=== PATIENT | female | born 1960 | race Caucasian/White ===

== ENCOUNTER 2020-12-05 10:25 | Emergency (ER) | payer BC, MEDICARE ==
[~2020-12-05] VITALS: Ht 165.1 cm; Wt 113.4 kg
[~2020-12-05 10:25] MED LIST: Percocet 10-321 EACH; Rituxan10 MG/ML IV; ZYRTEC10 M1 PO
[2020-12-05 11:25] LABS: BASOPHILS ABSOLUTE AUTO 0.02 K/mm3 (0.00-0.23); BASOPHILS PERCENT AUTO 0 % (0-2); EOSINOPHILS PERCENT AUTO 0 % (0-6); Hematocrit 38.9 % (33.0-51.0); Hemoglobin 13.4 g/dL (11.5-16.0); IMMATURE GRAN ABSOLUTE AUTO 0.13 K/mm3 (0.00-0.10); IMMATURE GRAN PERCENT AUTO 2 % (0-1); LYMPHOCYTES ABSOLUTE AUTO 0.97 K/mm3 (0.84-5.20); LYMPHOCYTES PERCENT AUTO 15 % (21-46); MONOCYTES ABSOLUTE AUTO 0.57 K/mm3 (0.16-1.47); MONOCYTES PERCENT AUTO 9 % (4-13); Mean Corpuscular HGB 29.1 pg (26.0-34.0); Mean Corpuscular HGB Conc 34.4 g/dL (31.5-36.5); Mean Corpuscular Volume 84 fL (80-100); Mean Platelet Volume 9.3 fL (9.1-12.4); NEUTROPHILS ABSOLUTE AUTO 4.86 K/mm3 (1.96-9.15); NEUTROPHILS PERCENT AUTO 74 % (41-73); Platelet Count 279 K/mm3 (150-400); RDW Coefficient Variation 13.8 % (11.7-14.2); RDW Standard Deviation 42.9 fL (35.1-46.3); Red Blood Cell Count 4.61 M/mm3 (3.80-5.20); White Blood Cell Count 6.55 K/mm3 (4.00-11.30)
[2020-12-05 11:46] LABS: Alanine Aminotransfer (ALT/SGP 29 U/L (12-78); Albumin, Blood 2.9 g/dL (3.4-5.0); Albumin/Globulin Ratio 0.6 (0.8-1.8); Alk Phos 83 U/L (50-136); Anion Gap 9 mmol/L (6-16); Aspartate Aminotrans (AST/SGOT 48 U/L (12-37); Bilirubin, Total 0.5 mg/dL (0.1-1.0); Blood Urea Nitrogen 7 mg/dL (8-24); Bun/Creatinine Ratio 10.1 (12.0-20.0); CO2, Blood 26 mmol/L (21-32); Calcium, Blood 8.7 mg/dL (8.5-10.1); Chloride, Blood 96 mmol/L (98-108); Creatinine, Blood 0.69 mg/dL (0.40-1.00); Globulin, Blood 4.7 g/dL (2.2-4.0); Glomerular Filtration Rate >60 (60-); Glucose, Blood 109 mg/dL (70-99); Potassium, Blood 3.8 mmol/L (3.5-5.5); Sodium, Blood 131 mmol/L (136-145); Total Protein, Blood 7.6 g/dL (6.4-8.2); Troponin I <0.015 ng/mL (0.000-0.040)
[2020-12-05] MEDS ORDERED: DEXA6 PO (13:58)
[2020-12-05] MEDS ORDERED: CEFP200 PO (13:58)
[2020-12-05] MEDS ORDERED: Zithromax250 MG PO (13:58)
[2021-01-04] MEDS ORDERED: PROPRANOLOL HC120 MG PO (16:47)
[2021-01-04] MEDS ORDERED: THERA-D2000 UNIT PO (16:47)
[2021-01-04] MEDS ORDERED: MONT10T PO (16:48)
[2021-01-04] MEDS ORDERED: CELEBREX200 MG PO (16:48)
[2021-01-04] MEDS ORDERED: OMEPRAZOLE MAGN20 M1 PO (16:49)
[2021-01-28] MEDS ORDERED: DOCUZEN 8.6-501 EACH PO (12:39)
[2021-01-28] MEDS ORDERED: MONT10T PO (12:40)
[2021-01-28] MEDS ORDERED: MELA3 PO (12:40)
[2021-01-28] MEDS ORDERED: PRED20 PO ×2 (12:41→12:42)
[2021-01-28] MEDS ORDERED: MIRALAX17 GM PO (12:41)
[2021-01-28] MEDS ORDERED: Prednisone10 MG PO (12:44)
[2021-01-28] MEDS ORDERED: ACET325 PO (13:08)
== END 2020-12-05 14:51 | disposition home or self-care (01) ==
LOC: ER 10:25
PROVIDERS: Physician Assistant
DX: U07.1 COVID-19 (principal); J12.82 Pneumonia due to coronavirus disease 2019; J96.01 Acute respiratory failure with hypoxia; Z88.8 Allergy status to other drugs, medicaments and biological substances; Z79.899 Other long term (current) drug therapy
CPT/HCPCS: 36415; 71045; 71260; 80053; 83880; 84145; 84484; 85025; 85379; 93005; 93010; 99285-25; A9270; Q9967

== ENCOUNTER 2020-12-09 15:07 | Inpatient (IN) | payer BC, MEDICARE ==
[~2020-12-09] VITALS: Ht 165.1 cm; Wt 110.2 kg
[~2020-12-09 15:07] MED LIST changes: +CEFP200 PO; +DEXA6 PO; +Zithromax250 MG PO
[2020-12-09 16:05] LABS: BASOPHILS ABSOLUTE AUTO 0.03 K/mm3 (0.00-0.23); BASOPHILS PERCENT AUTO 0 % (0-2); EOSINOPHILS PERCENT AUTO 0 % (0-6); Hemoglobin 13.6 g/dL (11.5-16.0); IMMATURE GRAN ABSOLUTE AUTO 0.37 K/mm3 (0.00-0.10); IMMATURE GRAN PERCENT AUTO 3 % (0-1); LYMPHOCYTES ABSOLUTE AUTO 0.65 K/mm3 (0.84-5.20); LYMPHOCYTES PERCENT AUTO 5 % (21-46); MONOCYTES ABSOLUTE AUTO 0.56 K/mm3 (0.16-1.47); MONOCYTES PERCENT AUTO 4 % (4-13); Mean Corpuscular HGB 28.5 pg (26.0-34.0); Mean Corpuscular Volume 84 fL (80-100); NEUTROPHILS ABSOLUTE AUTO 12.76 K/mm3 (1.96-9.15); NEUTROPHILS PERCENT AUTO 89 % (41-73); Platelet Count 471 K/mm3 (150-400); RDW Coefficient Variation 13.5 % (11.7-14.2); RDW Standard Deviation 41.7 fL (35.1-46.3); Red Blood Cell Count 4.77 M/mm3 (3.80-5.20); White Blood Cell Count 14.37 K/mm3 (4.00-11.30)
[2020-12-09] MEDS ORDERED: PROP120ER PO (16:10)
[2020-12-09] MEDS ORDERED: ERGO50000 PO (16:12)
[2020-12-09] MEDS ORDERED: BUPROPION XL150 M1 PO (16:13)
[2020-12-09] MEDS ORDERED: CELE200 PO (16:13)
[2020-12-09] MEDS ORDERED: OMEP20ER PO (16:14)
[2020-12-09] MEDS ORDERED: DULO60 PO (16:14)
[2020-12-09] MEDS ORDERED: MONT10T PO (16:14)
[2020-12-09] MEDS ORDERED: LEVSOD112 PO (16:14)
[2020-12-09 16:25] LABS: Alanine Aminotransfer (ALT/SGP 32 U/L (12-78); Albumin, Blood 2.6 g/dL (3.4-5.0); Albumin/Globulin Ratio 0.6 (0.8-1.8); Alk Phos 87 U/L (50-136); Anion Gap 8 mmol/L (6-16); Aspartate Aminotrans (AST/SGOT 77 U/L (12-37); Bilirubin, Total 0.6 mg/dL (0.1-1.0); Blood Urea Nitrogen 11 mg/dL (8-24); Bun/Creatinine Ratio 18.2 (12.0-20.0); CO2, Blood 27 mmol/L (21-32); Calcium, Blood 8.5 mg/dL (8.5-10.1); Chloride, Blood 97 mmol/L (98-108); Creatinine, Blood 0.61 mg/dL (0.40-1.00); Globulin, Blood 4.7 g/dL (2.2-4.0); Glomerular Filtration Rate >60 (60-); Glucose, Blood 132 mg/dL (70-99); Potassium, Blood 3.4 mmol/L (3.5-5.5); Sodium, Blood 132 mmol/L (136-145); Total Protein, Blood 7.3 g/dL (6.4-8.2)
--- NOTE | 2020-12-09 21:00 | NUR ---
ADMISSION: PT ARRIVES FROM THE ED, INITIAL C/O LUQ PAIN & DYSPNEA. FAMILY STS SHE WAS DX'd W/ COVID ON 12/05 & RX'd HOME O2. SHE WAS DOING WELL UNTIL YESTERDAY WHEN SHE BECAME DYSPNEIC & BIOX SHOWED 77% ON 2L. UPON ARRIVAL TO THE ED, PT WAS VERY PALE, DIAPHORETIC, COOL EXTREMITIES, & SLOW TO RESPOND. PLACED ON NON-REBREATHER @ 15L/MIN & AFTER APPROX 10MIN, SATS IMPROVED TO THE 90s. UPON ARRIVAL TO ICU, PT WAS PLACED ON AIRVO, AFTER SEVERAL MINS, PT CONTINUED TO DESAT TO LOW 80s. PLACED ON BiPAP @ 10/70% & PT IMMEDIATELY BEGAN TO IMPROVE. SPO2 MAINTAINING @ 93-96%, COLOR RETURNING TO PT'S FACE, LIMBS COOL BUT IMPROVING. PT STS SHE IS MUCH MORE COMFORTABLE & ABLE TO REST. PT EDUCATED ON THE IMPORTANCE OF EARLY PRONING & PT AGREES. WILL ATTEMPT TO PRONE BEGINNING W/ SIDE LAYING POSITION ONCE PT HAS SETTLED IN
[2020-12-09 22:19] LABS: Source, Urine Catheter
[2020-12-09 22:21] LABS: Bilirubin, Urine Neg (Neg); Blood, Urine 1+ (Neg); Glucose Qualitative, Urine Neg (Neg); Ketones, Urine Neg (Neg); Leukocyte Esterase, Urine Neg (Neg); Nitrite, Urine Neg (Neg); Protein, Urine 2+ (Neg); Specific Gravity, Urine 1.025 (1.003-1.022); Urobilinogen, Urine NORM (Normal)
[2020-12-09 22:26] LABS: Color, Urine Yellow (P-Yellow)
[2020-12-09 22:27] LABS: Appearance, Urine Hazy (Clear); Red Blood Cells, Urine 0-2 /hpf (0-2)
[2020-12-09 22:28] LABS: Amorphous Heavy (0-Heavy); Bacteria Few /hpf; Squamous Epithelial Cells Rare /hpf (Few)
--- NOTE | 2020-12-09 22:45 | NUR ---
FAMILY UPDATE: SPOKE W/ FAMILY & SPOUSE, UPDATED ON PT'S IMPROVEMENTS & PLAN OF CARE. FAMILY IS AGREEABLE TO THIS PLAN & SPOUSE PLANS TO VISIT TOMORROW. HEALTH Hx ALSO RECEIVED FROM SPOUSE. CONTACT INFO PLACED IN CHART.
--- NOTE | 2020-12-10 00:30 | NUR ---
UPDATE: PT ASSISTED TO LAY IN A R SIDE LAYING POSITION, SUPPORTED W/ PILLOWS. SATS IMPROVED FROM 96% TO 98% & PT IS TOLERATING VERY WELL.
--- NOTE | 2020-12-10 01:33 | NUR ---
UPDATE: PT CONTINUES TO DO WELL ON BiPAP, SATS MAINTAINING 96%. FiO2 DEC FROM 70% TO 60%. SPOKE W/ DR POOLE REGARDING PT'S UNCHANGED LUQ PAIN, NEW ORDERS RECEIVED. ALSO DISCUSSED PULMONARY CONSULT ORDERS & DR POOLE AGREES. ORDERS PLACED.
[2020-12-10 05:02] LABS: BASOPHILS ABSOLUTE AUTO 0.03 K/mm3 (0.00-0.23); BASOPHILS PERCENT AUTO 0 % (0-2); EOSINOPHILS PERCENT AUTO 0 % (0-6); Hematocrit 39.1 % (33.0-51.0); Hemoglobin 13.2 g/dL (11.5-16.0); IMMATURE GRAN ABSOLUTE AUTO 0.29 K/mm3 (0.00-0.10); IMMATURE GRAN PERCENT AUTO 3 % (0-1); LYMPHOCYTES ABSOLUTE AUTO 0.81 K/mm3 (0.84-5.20); LYMPHOCYTES PERCENT AUTO 9 % (21-46); MONOCYTES ABSOLUTE AUTO 0.72 K/mm3 (0.16-1.47); MONOCYTES PERCENT AUTO 8 % (4-13); Mean Corpuscular HGB 28.1 pg (26.0-34.0); Mean Corpuscular HGB Conc 33.8 g/dL (31.5-36.5); Mean Corpuscular Volume 83 fL (80-100); NEUTROPHILS ABSOLUTE AUTO 7.09 K/mm3 (1.96-9.15); NEUTROPHILS PERCENT AUTO 79 % (41-73); RDW Coefficient Variation 13.6 % (11.7-14.2); RDW Standard Deviation 41.3 fL (35.1-46.3); Red Blood Cell Count 4.69 M/mm3 (3.80-5.20); White Blood Cell Count 8.94 K/mm3 (4.00-11.30)
[2020-12-10 05:14] LABS: Mean Platelet Volume 9.2 fL (9.1-12.4); Platelet Count 441 K/mm3 (150-400)
[2020-12-10 05:20] LABS: Alanine Aminotransfer (ALT/SGP 35 U/L (12-78); Albumin, Blood 2.3 g/dL (3.4-5.0); Albumin/Globulin Ratio 0.5 (0.8-1.8); Alk Phos 81 U/L (50-136); Anion Gap 8 mmol/L (6-16); Aspartate Aminotrans (AST/SGOT 74 U/L (12-37); Bilirubin, Total 0.6 mg/dL (0.1-1.0); Blood Urea Nitrogen 13 mg/dL (8-24); Bun/Creatinine Ratio 28.2 (12.0-20.0); CO2, Blood 28 mmol/L (21-32); Calcium, Blood 8.6 mg/dL (8.5-10.1); Chloride, Blood 99 mmol/L (98-108); Creatinine, Blood 0.46 mg/dL (0.40-1.00); Globulin, Blood 4.7 g/dL (2.2-4.0); Glomerular Filtration Rate >60 (60-); Glucose, Blood 119 mg/dL (70-99); Potassium, Blood 4.4 mmol/L (3.5-5.5); Sodium, Blood 135 mmol/L (136-145); Thyroid Stimulating Hormone 0.452 uIU/mL (0.360-4.800)
--- NOTE | 2020-12-10 06:04 | NUR ---
SHIFT SUMMARY: PT CONTINUES ON CPAP @ 10/60%. SPO2 >93% THROUGHOUT THE NIGHT. WHEN REMOVING CPAP MASK FOR SKIN & ORAL CARE, PT DOES DESAT TO THE 80s VERY QUICKLY & CAN ONLY TOLERATE <2min BREAKS FROM THE CPAP. HOWEVER SHE DOES RECOVER QUICKLY. PT HAD DIFFICULTY SELF-PRONING & TURNING TO THE SIDE D/T RECURRENT LUQ PAIN. PRN FENTANYL RESOLVED THIS PAIN & PT WAS ABLE TO TOLERATE SIDE LAYING POSITIONS & SATS IMPROVE TO 97%. 225ml URINE OUTPUT. SERUM Na+ & K+ IMPROVED AFTER LR MAINTENANCE FLUID @ 100ml/hr. PLAN FOR PULMONARY CONSULT TODAY TO DICTATE FURTHER PLAN OF CARE.
--- NOTE | 2020-12-10 07:30 | NUR ---
ASSUMED CARE PT SITTING UP IN BED WITH NO COMPLAINTS OF PAIN. A/O X4, VSS AND ANXIOUS TO GET OUT OF HERE. DOES C/O ITCHING AT IV SITE, STATES SHE IS ALLERGIC TO TAPE ADHESIVE. WILL SPEAK TO MD THIS AM TO GET HER HOME DAVID. MADE SURE SHE UNDERSTANDS THAT IT IS VERY IMPORTANT TO FOLLOW UP WITH [facility], BECAUSE SOMETHING IS OBVIOUSLY GOING ON FOR HER TO HAVE BLED THAT MUCH. PT STATES UNDERSTANDING. SHE ALSO STATES THAT SHE PREFERS FEMALE MD'S FOR ALL OF HER CARE. STATES SHE HAD SOME VERY BAD EXPERIENCES WITH MALE MD'S.
--- NOTE | 2020-12-10 08:15 | NUR ---
PLACED PT ON AIRVO, 50L @ 90% FIO2, FOR MEALTIME AND MOUTH CARE. PT STATES THAT SHE HAD SINUS SURG 2X AND HAS TO THINK ABOUT BREATHING THROUGH HE RNOSE. TURNED THE ALARM UP FOR THE PT TO BE ABLE TO HEAR IT AND LET HER KNOW THAT WHEN SHE HEARS THAT SHE HAS TO BREATH THROUGH HER NOSE A FEW TIMES TO GET THE ALARM TO STOP. IF AND WHEN SHE GETS TIRED, WE CAN PUT HER BACK ON THE BIPAP. FIGURED SHE WOULD NEED A BREAK FROM THE MASK, AT LEAST FOR A LITTLE WHILE. WILL CONTINUE TO MONITOR
[2020-12-10] MEDS ORDERED: ERGO50000 PO (12:27)
--- NOTE | 2020-12-10 16:00 | NUR ---
PLACED PT BACK ON BIPAP FOR A REST. PT DESATS WITH SPEAKING EATING OR JUST BEING AWAKE BECAUSE SHE HAS GOTTEN INTO THE HABIT OF BEING A MOUTH BREATHER SINCE SINUS SURG. WHEN SHE IS SLEEPING SHE BREATHS THROUGH HER NOSE, BUT AWAKE SHE BREATHS THROUGH HER MOUTH.
--- NOTE | 2020-12-10 17:34 | NUR ---
Per admit trigger, I attempted to meet with Mrs. Bauman to offer education about advanced care planning. She is in isolation and sleeping soundly at this time. I will attempt in coming days.
--- NOTE | 2020-12-10 19:30 | NUR ---
ASSUMING PT CARE: PT LAYING SUPINE IN BED, HOB @ 30 DEGREES. RESPONSIVE & PLEASANTLY INTERACTIVE WHEN STAFF ENTERS ROOM. SATS >96% ON AIRVO @ 60L & 85% FiO2. WHEN SPEAKING PT DESATS QUICKLY TO THE LOW 80s. PT IS VERY EXCITED & HAS DIFFICULTY REFRAINING FROM TALKING &BECOMES DYSPNEIC. FiO2 IN TO 93% & AFTER SEVERAL MINS OF INSTRUCTING PT TO TAKE IN DEEP BREATHS IN THROUGH THE NOSE & OUT THE MOUTH, SHE RECOVERS TO 95%. PT OTHERWISE DENIES ANY COMPLAINTS. PLAN FOR PE STUDY THIS SHIFT. SPOKE W/ HOSPITALIST, VERENICE, WHO WILL ADJUST PT'S XARELTO DOSE AFTER SHE RECEIVES CT RESULTS. WILL CONTINUE TO MONITOR & REPORT APPROPRIATE.
--- NOTE | 2020-12-11 01:30 | NUR ---
UPDATE: PT TO CT FOR PE STUDY. TOLERATED TRANSPORT WELL. PER RT RECOMMENDATION, W/ HIGHFLOW NC @ 15L & NON-REBREATHER MASK @ 15L, SATS MAINTAINED >97%. PT BACK TO ROOM W/OUT INCIDENT. REPOSITIONED TO THE R SIDE & ENCOURAGED TO TURN FROM SIDE TO SIDE TOLERATED. PE STUDY RESULTS: NEG FOR PE PER vRAD.
--- NOTE | 2020-12-11 05:31 | NUR ---
SHIFT SUMMARY: PT HAD DIFFICULTY SLEEPING LAST NIGHT, STS SHE IS BOTHERED BY THE MANY LIGHTS IN THE ROOM & FEELS THE DEXAMETHASONE IS KEEPING HER AWAKE. OTHERWISE PT DENIES ANY COMPLAINTS. AIRVO TITRATED DOWN TO 83% FiO2. PT DESATS SIGNIFICANTLY & QUICKLY WHEN TALKING, DOWN TO THE LOW 80s. AFTER A FEW MOMENTS OF NASAL BREATHING, PT RECOVERS. COUGH BECAME MORE PRODUCTIVE THROUGHOUT THE NIGHT, OFTEN W/ POSITION CHANGES. SECRETIONS EASILY MANAGED. GOOD URINE OUTPUT, 650ml. NO ACUTE NEG CHANGES THROUGHOUT THE NIGHT. WILL CONTINUE TO MONITOR UNTIL REPORT OFF TO ONCOMING RN.
--- NOTE | 2020-12-11 19:30 | NUR ---
PATIENT AWAKE RESTING QUIETLY. AIRVO IN PLACE SET AT 55L FIO2 87% POSITIONING SELF IN BED FOR COMFORT. NO COMPLAINTS AT THIS TIME.
--- NOTE | 2020-12-11 22:06 | NUR ---
PATIENT RESTING IN BED ABLE TO ASSIST WITH HS CARE, CONTINUES TO BECOME SOB WITH SLIGHT ACTIVITY AND WITH TALKING. MAINTAIN BIOX >90% WITH AIRVO 55L AND 87% WITH THE ACTIVITY OF BRUSHING TEETH AND REPOSITIONING IN BED. PATIENT C/O FEELING SORE MOUTH AND THAT SHE HAS CHUNKS HER MOUTH, PATCHES OF WHITE SEEN ON HE TONGUE, INNER CHEEKS, AND DOWN HER THROAT. VERENICE COLLEGE DIRECTOR NOTIFIED AND NYSTATIN S/S ORDERED. PATIENT VERBALIZED PLAN TO USE CPAP FOR SLEEP AND TO SLEEP EITHER HIGH ON HER SIDE AND STOMACH TONIGHT.
--- NOTE | 2020-12-11 22:53 | NUR ---
PATIENT READY TO TRY TO SLEEP. CPAP 10 FIO2 60% PLACED AND PATIENT ASSISTED TO LAY HIGH UP ONTO HER RIGHT SIDE
[2020-12-12 03:40] LABS: BASOPHILS ABSOLUTE AUTO 0.02 K/mm3 (0.00-0.23); BASOPHILS PERCENT AUTO 0 % (0-2); EOSINOPHILS ABSOLUTE AUTO 0.01 K/mm3 (0.00-0.68); EOSINOPHILS PERCENT AUTO 0 % (0-6); Hematocrit 36.3 % (33.0-51.0); Hemoglobin 12.1 g/dL (11.5-16.0); IMMATURE GRAN ABSOLUTE AUTO 0.14 K/mm3 (0.00-0.10); IMMATURE GRAN PERCENT AUTO 1 % (0-1); LYMPHOCYTES ABSOLUTE AUTO 1.09 K/mm3 (0.84-5.20); LYMPHOCYTES PERCENT AUTO 9 % (21-46); MONOCYTES ABSOLUTE AUTO 1.03 K/mm3 (0.16-1.47); MONOCYTES PERCENT AUTO 8 % (4-13); Mean Corpuscular HGB 28.2 pg (26.0-34.0); Mean Corpuscular HGB Conc 33.3 g/dL (31.5-36.5); Mean Corpuscular Volume 85 fL (80-100); Mean Platelet Volume 8.8 fL (9.1-12.4); NEUTROPHILS ABSOLUTE AUTO 9.98 K/mm3 (1.96-9.15); NEUTROPHILS PERCENT AUTO 81 % (41-73); Platelet Count 338 K/mm3 (150-400); RDW Coefficient Variation 13.5 % (11.7-14.2); RDW Standard Deviation 41.9 fL (35.1-46.3); Red Blood Cell Count 4.29 M/mm3 (3.80-5.20); White Blood Cell Count 12.27 K/mm3 (4.00-11.30)
[2020-12-12 03:59] LABS: Anion Gap 6 mmol/L (6-16); Blood Urea Nitrogen 13 mg/dL (8-24); Bun/Creatinine Ratio 30.4 (12.0-20.0); CO2, Blood 32 mmol/L (21-32); Calcium, Blood 8.6 mg/dL (8.5-10.1); Chloride, Blood 100 mmol/L (98-108); Creatinine, Blood 0.43 mg/dL (0.40-1.00); Glomerular Filtration Rate >60 (60-); Glucose, Blood 86 mg/dL (70-99); Magnesium, Blood 1.8 mg/dL (1.6-2.4); Phosphorus, Blood 4.2 mg/dL (2.5-4.9); Potassium, Blood 3.7 mmol/L (3.5-5.5); Sodium, Blood 138 mmol/L (136-145)
--- NOTE | 2020-12-12 05:58 | NUR ---
SUMMARY PATIENT SLEEPING MOST OF THE NIGHT WITH CPAP 10 FIO2 60% IN PLACE. LAYING HIGH UP ON HER RIGHT SIDE ABLE TO REPOSITION SELF IN BED FOR COMFORT. PATIENT NOW AWAKE AND VERBALIZED SHE WAS ABLE TO GET SOME SLEEP TONIGHT. NOW ON AIRVO 55L 87% FIO2 MAINTAINING BIOX 98% AT REST. CONTINUES TO HAVE SOB WITH ACTIVITY AND WITH TALKING, BUT MAINTAINING BIOX BETTER THIS MORNING.
--- NOTE | 2020-12-12 08:00 | NUR ---
PT A&OX4. DENIES PAIN. PT HAS WHITE PATCHES TO HER MOUTH AND DOWN HER THROAT. PT REPORTS HAVING "THRUSH" IN THE PAST AND STATES THAT IT QUICKLY EXTENDS TO HER PANUS AND FINN AREA-WILL REQUEST DIFLUCAN. VS WDL. LUNGS DIMINISHED WITH BIBASILAR CRACKLES. RR 30'S. SATS>90% ON AIRVO 55L/87% NO NOTED COUGH AT THIS TIME. PT DENIES GI DISTRESS. SITTING IN HIGH DOUGLASS'S POSITION FEEDING HERSELF FULL LIQUID BREAKFAST TRAY. NANCE TO BSD WITH ADEQUATE AMOUNT OF YELLOW URINE TO UROMETER.
--- NOTE | 2020-12-12 10:45 | NUR ---
PT REMAINS TEARFUL. PT AWARE OF THE EVENTS THAT LEAD TO HER HOSPITALIZATION. PT DENIES SUICIDAL OR HOMICIDAL IDEATION AT THIS TIME. WHEN ASKED IF PT WOULD BE WILLING TO SPEAK WITH DR. MCCARTHY, PT STATES "I HAVEN'T HAD MUCH LUCK WITH PSYCHOLOGIST. THEY TREAT ME LIKE SHIT!"
--- NOTE | 2020-12-12 12:00 | NUR ---
ASSISTED PT WITH SPONGE BATH, THEN OOB TO CHAIR. SATS DROPPED TO 87% BRIEFLY, BUT QUICKLY RETURNED TO GREATER THAN 90%. PT DENIES PAIN. SITTING UP IN CHAIR FEEDING HERSELF FULL LIQUID DIET.
--- NOTE | 2020-12-12 16:23 | NUR ---
PT HAS BEEN SLEEPING OFF AND ON THIS AFTERNOON. NO NOTED DISTRESS. MAINTAINS SATS>90%
--- NOTE | 2020-12-12 17:30 | NUR ---
PT AWAKENED AFTER NAPPING MOST OF THE AFTERNOON. PT REMAINS A&OX4-STILL DENIES PAIN. SOB WITH EXERTION, BUT MAINTAINS SATS>90% ON AIRVO 55L/85%. PT POSITIONING HERSELF IN BED. SITTING UP IN BED FEEDING HERSELF FULL LIQUID DINNER BRENDON BETANCOURT NOTED DISTRESS.
--- NOTE | 2020-12-12 19:39 | NUR ---
SHIFT ASSESSMENT PT A&OX4. SITTING UPRIGHT IN BED WATCHING TV. APPEARS TO BE COMFORTABLE AT THIS TIME. DENIES PAIN. VS WNL. ON AIRVO-55L @ 85% c O2 SATS >95%. UP TO BEDSIDE CHAIR TODAY, PT STATED SHE DID WELL BUT STILL BECOMES DYSPNEIC WITH EXERTION. NANCE CATH PATENT, DRAINING YELLOW URINE. PT REQUESTING CPAP AROUND 2300, NO OTHER COMPLAINTS OR CONCERNS AT THIS TIME. WILL CONTINUE TO MONITOR.
[2020-12-13 03:40] LABS: BASOPHILS ABSOLUTE AUTO 0.02 K/mm3 (0.00-0.23); BASOPHILS PERCENT AUTO 0 % (0-2); EOSINOPHILS ABSOLUTE AUTO 0.01 K/mm3 (0.00-0.68); EOSINOPHILS PERCENT AUTO 0 % (0-6); Hematocrit 36.8 % (33.0-51.0); Hemoglobin 12.1 g/dL (11.5-16.0); IMMATURE GRAN ABSOLUTE AUTO 0.18 K/mm3 (0.00-0.10); IMMATURE GRAN PERCENT AUTO 2 % (0-1); LYMPHOCYTES ABSOLUTE AUTO 1.22 K/mm3 (0.84-5.20); LYMPHOCYTES PERCENT AUTO 10 % (21-46); MONOCYTES ABSOLUTE AUTO 1.18 K/mm3 (0.16-1.47); MONOCYTES PERCENT AUTO 10 % (4-13); Mean Corpuscular HGB 28.1 pg (26.0-34.0); Mean Corpuscular HGB Conc 32.9 g/dL (31.5-36.5); Mean Corpuscular Volume 85 fL (80-100); Mean Platelet Volume 8.9 fL (9.1-12.4); NEUTROPHILS ABSOLUTE AUTO 9.14 K/mm3 (1.96-9.15); NEUTROPHILS PERCENT AUTO 78 % (41-73); Platelet Count 334 K/mm3 (150-400); RDW Coefficient Variation 13.2 % (11.7-14.2); RDW Standard Deviation 41.4 fL (35.1-46.3); Red Blood Cell Count 4.31 M/mm3 (3.80-5.20); White Blood Cell Count 11.75 K/mm3 (4.00-11.30)
--- NOTE | 2020-12-13 05:56 | NUR ---
SHIFT SUMMARY NO SIGNIFICANT CHANGES T/O THE NIGHT. PT ABLE TO SLEEP FOR MOST OF THE NIGHT. TOLERATED CPAP WELL, SATS REMAINED >95%. TRANSITIONED BACK TO AIRVO THIS AM WITH MORNING MEDICATIONS, RESUMED SETTINGS FROM LAST NIGHT. WILL CONTINUE TO MONITOR, REPORT TO ONCOMING NURSE.
--- NOTE | 2020-12-13 07:37 | NUR ---
PT A&OX4. DENIES PAIN. LUNGS DIMINISHED IN THE BASES. MOIST COUGH, PRODUCTIVE OF MODERATE AMOUNT OF CLEAR SECRETIONS. MAINTAINS SATS>90% ON AIRVO 55L/84% EXERTIONAL DYSPNEA CONTINUES. PT STATES THAT HER THRUSH IS "BETTER." REQUESTS TO ADVANCE DIET TO SOFT DIET FOR LUNCH.
--- NOTE | 2020-12-13 12:00 | NUR ---
PT ASSISTED WITH SPONGE BATH, HAIR WASHED, THEN STANDBY ASSIST OOB TO CHAIR. SATS DROPPED VERY BRIEFLY TO 88%, THEN QUICKLY RETURNED>90% ON 55L/76%. PT GIVEN SOFT/VEGAN DIET-NO GI DISTRESS.
--- NOTE | 2020-12-13 15:46 | NUR ---
PT REQUESTED TO GET OUT OF THE CHAIR & ONTO THE COMMODE TO ATTEMPT TO HAVE A BM. STAND BY ASSIST ONLY. MAINTAINED SATS>90%
--- NOTE | 2020-12-13 16:00 | NUR ---
ASSISTED PT BACK TO BED AFTER PT UP TO COMMODE TO ATTEMPT (UNSUCESSFUL) BM. PT MAINTAINED SATS>90% ON AIRVO 55L/76%-STANDBY ASSIST ONLY.
--- NOTE | 2020-12-13 19:29 | NUR ---
SHIFT ASSESSMENT ASSUMED CARE OF PT @ 1900, REPORT FROM REILLY CORTES. PT A&OX4. SITTING UPRIGHT IN BED WATCHING TV. ON AIRVO 55L/75-77% c O2 SATS >95%. LS CLEARING SINCE YESTERDAY, STILL DIMINISHED IN THE BASES. VSS. NANCE CATH PATENT, DRAINING TO GRAVITY. PT DENIES ANY PAIN OR DISCOMFORT. NO REQUESTS OR CONCERNS FROM PT AT THIS TIME. WILL CONTINUE TO MONITOR.
--- NOTE | 2020-12-14 06:03 | NUR ---
SHIFT SUMMARY PT ALERT AND ORIENTED. SLEPT INTERMITTENTLY, CPAP MASK WAS BOTHERSOME AT TIMES. TRANSITIONED PT BACK TO AIRVO @0600 @ 55L/~73-76% c O2 SAT OF 99%. NO ACUTE CHANGES DURING THE NIGHT. PT BEING TX TO PCU ROOM 9. REPORT GIVEN TO REILLY FOX @ 06. WILL CONTINUE TO MONITOR UNTIL TX.
--- NOTE | 2020-12-14 06:29 | NUR ---
PT TO PCU VIA ICU BED, LEFT UNIT @ 8859 WITH PENNY MIXON.
--- NOTE | 2020-12-14 06:50 | NUR ---
PT TRANSFERRED FROM ICU AT APPROXIMATELY 0630 - PT SETTLED IN BED, VITALS STABLE, RESPIRATORY AT BEDSIDE TO SET UP AIRVO AND CPAP FOR PATIENTS. TELE PLACED ON PATIENT - NSR. PT DENIES ANY NEEDS AT THIS TIME. WILL CONTINUE TO MONITOR UNTIL HANDOFF TO DAY SHIFT.
--- NOTE | 2020-12-14 08:00 | NUR ---
PT LAYING IN BED WATCHING TV, A/OX3, PLEASATN AND COOPERATIVE WITH CARE, FOLLOWS COMMANDS WELL, DENIES PAIN BREATHING IS ABOUT THE SAME, STATES SHE SLEPT OK LAST NIGHT, LUNGS ARE CLEAR DIM IN BASES, RESP EVEN AND UNLABORED, NO COUGH NOTED AT THIS TIME, CURRENTLY ON AIRVO, SATS IN THE MID 90'S, HRR, TELE IN PLACE RUNNING SR PER MONITOR, SEE STRIP, NO EDEMA NOTED, PPP+2, CAP REFILL <3SEC, VS STABLE, AFEBRILE, IV SITES ARE CLEAR AND PATENT, S.L. AT THIS TIME, BTX4, ABD FLAT SOFT NONTENDER, VOIDS WITHOUT DIFF, SKIN C/W/D, MAEW, KIRIT, CALL LIGHT IN REACH.
--- NOTE | 2020-12-14 18:31 | NUR ---
pt kinjal olguin. got her up to the chair, she easily transfered indep, just needs lines managed. no acute changes this shift. call light in reach.
--- NOTE | 2020-12-15 05:51 | NUR ---
SHIFT SUMMARY PT A&O X 4; PLEASANT & COMPLIANT W/ CARE; DENIES CHEST PAIN; VSS; NSR NOTED ON TELE; O2 SATS >93 ON AIRVO; CPAP AT NOC; NANCE PATENT & DRAINING SUE; NO ACUTE CHANGES THIS SHIFT; CALL LIGHT IN REACH; BED IN LOWEST POSITION; WILL CONTINUE TO MONITOR CLOSELY UNTIL HAND OFF TO DAY SHIFT RN.
--- NOTE | 2020-12-15 18:34 | NUR ---
SUMMARY PT REMAINS ON THE AIRVO, TOLERATING W/NO PROBLEMS. FIO2 60% 50 L SPO2 >95, VSS. PT WAS ABLE TO WORK WITH PHYSICAL THERAPY TODAY, SHE ALSO SAT AT THE SINK TO WASH HER HAIR/BODY, 1 ASSIST USING FWW. TOLERATING PO INTAKE. NANCE REMAINS PATENT, DRAINING CLEAR YELLOW URINE. CALL LIGHT IN REACH, WCTM
--- NOTE | 2020-12-16 05:44 | NUR ---
SHIFT SUMMARY PT A&O X 4; DENIES CHEST PAIN; VSS; NSR NOTED ON TELE; O2 SATS >93 ON AIRVO 50L; Q2 TURNS PROVIDED, PT ABLE TO MOSTLY ABLE TO REPOSITION SELF; NANCE PATENT & DRAINING; SLEPT A FEW HOURS IN BETWEEN INTERVENTIONS; DENIES NEEDS; CALL LIGHT IN REACH; BED IN LOWEST POSITION; WILL CONTINUE TO MONITOR CLOSELY UNTIL HAND OFF TO DAY SHIFT RN.
--- NOTE | 2020-12-16 18:24 | NUR ---
SUMMARY PT HAS DONE WELL TODAY, SHE IS CURRENTLY ON AIRVO 40 L FIO2 40% SPO2 >92%, RESP UNLABORED, DOWN FROM 50 L & FIO2 OF 50%. PT EDUCATED ON TITRATION OF O2 & HAS BEEN ENC TO CALL NURSING STAFF DAVID FOR ANY PROBLEMS OR CONCERNS. NANCE CATHETER WAS D/C TODAY, PT HAS VOIDED WITH NO PROBLEMS, SHE WAS ALSO ABLE TO HAVE A BM. TOLERATING PO INTAKE, VSS, CALL LIGHT IN REACH, WCTM & REPORT TO MADELAINE RN
--- NOTE | 2020-12-17 06:15 | NUR ---
SHIFT SUMMARY PT A&O X 4; DENIES CHEST PAIN; VSS; NSR NOTED ON TELE; O2 SATS >93 ON AIRVO 40 L AND 40 %; BIPAP ON CPAP SETTINGS FOR A COUPLE HOURS; UP TO BATHROOM X 2 DURING NOC; SLEPT SEVERAL HOURS IN BETWEEN INTERVENTIONS; CURRENTLY SITTING AT BEDSIDE; DENIES NEEDS; CALL LIGHT IN REACH; BED IN LOWEST POSITION; WILL CONTINUE TO MONITOR CLOSELY UNTIL HAND OFF TO DAY SHIFT RN.
--- NOTE | 2020-12-17 18:12 | NUR ---
SUMMARY NO ACUTE CHANGES NOTED THROUGH THE DAY. PT REMAINS ON AIRVO @ 40 L 35% FIO2, RESP UNLABORED @ REST, PT WILL DESATURATE WITH ACTIVITY INTO THE MID 80'S BUT SHE RECOVERS QUICKLY WITH REST & DEEP BREATHS, PT/OT IN TO WORK WTH PT TODAY WELL. VSS, TOLERATING PO INTAKE, VOIDING WNL. PT WAS ABLE TO TALK TO DIETARY ABOUT FOOD CHOICES, SHE IS MUCH HAPPIER. WCTM, CALL LIGHT IN REACH
--- NOTE | 2020-12-18 06:08 | NUR ---
SHIFT SUMMARY PT IS ALERT AND ORIENTED. THERE HAS BEEN NO ACUTE CHANGES. VITALS ARE STABLE AND SATING WITH >92% ON AIRVO OF 93 L AND 35% FIO2. PT HAS SOB WITH EXERTION. PT AMBULTES TO BATHROOM WITH FWW SBA. PT DENIES CHEST PAIN.
--- NOTE | 2020-12-18 17:30 | NUR ---
UPDATE PT ALERT AND ORIENTED. VS STABLE. O2 SATS REMAIN ABOVE 90% ON 15L HIGH FLOW CANNULA. PT TITRATED DOWN FROM AIRVO THIS AM. BP STABLE. TELE DISCONTINUED THIS SHIFT. PT DENIES ANY PAIN. PT ABLE TO AMBULATE TO BATHROOM WITH SBA AND FWW NEEDED. STATUS CHANGED TO MEDICAL. REPORT GIVEN TO THAD GROVER. PT TAKEN UP BY PILY.
--- NOTE | 2020-12-18 17:50 | NUR ---
SHIFT SUMMARY PCU TRANSFER AT DINNERTIME. RECEIVED REPORT FROM EVIN GROVER. PATIENT SETTLED INTO ROOM. DENIES PAIN AND NAUSEA. EATING DINNER. UP SBA W/FWW TO BR. MAINTAINING OXYGEN SATURATION ABOVE 90% ON 15L/HIFLOW NASAL CANNULA.
--- NOTE | 2020-12-19 04:23 | NUR ---
SHIFT SUMMARY ADMITTED FOR HYPOXEMIC RESPIRATORY FAILURE/COVID 19. FULL CODE. PT HAS COMPLETED REMDESIVIR, SHE IS ON DECADRON. PLAN IS TO CONTINUE TO TITRATE O2 USAGE DOWN TOLERATED. AT THIS TIME SHE IS DOWN TO 13 LPM VIA HIGH FLOW CANNULA. I AM INFORMED THAT HER MENTATION IS MUCH IMPROVED FROM WHEN SHE WAS IN PCU, ALTHOUGH THERE STILL ARE MOMENTS OF FOGGINESS. SHE HAS A HX OF THYROID CANCER AND IS ON IMMUNOSUPPRESSIVE RX. SHE IS NOW MONITORED BY CONTINUOUS PULSE OX. NO NEW CONCERNS THIS SHIFT.
--- NOTE | 2020-12-19 16:07 | NUR ---
SHIFT SUMMARY PATIENT DENIES PAIN, NAUSEA, AND SHORTNESS OF BREATH. PATIENT TIRES EAILY WITH ACTIVITY. MAINTAINING OXYGEN SATURATION ABOVE 95% ON 11L HIFLOW NASAL CANULA. UP SBA TO BR. SHOWERED TODAY. WORKED WITH PT/OT. NO BM SEVERAL DAYS, SUPPOSITORY GIVEN. ALERT, ORIENTED, AND COOPERATIVE WITH CARE. APPETITE IMPROVING. WATCHING TV AND CHATTING ON PHONE MOST OF SHIFT.
--- NOTE | 2020-12-20 03:54 | NUR ---
SHIFT SUMMARY PATIENT HAD NO ACUTE CHANGES OBSERVED. AXOX 3 WITH CONFUSION AT TIMES. ON 10L HIGH FLOW NASAL CANULA STATING 94% ON CONTINUOUS PULSE OXIMETRY. SBA WITH FWW TO BR. SOB WITH EXERTION. VSS/AFEBRILE. DENIES PAIN AND N/V. DROPLET PRECAUTIONS; COVID-19+. COOPERATIVE WITH CARE. CALL LIGHT IN REACH. BED IN LOWEST POSITION. WILL CONTINUE TO MONITOR UNTIL DAY SHIFT NURSE ASSUMES CARE.
--- NOTE | 2020-12-20 19:33 | NUR ---
SHIFT SUMMARY: NO ACUTE CHANGES TO REPORT THIS SHIFT. PT A&O; CALM AND COOPERATIVE WITH CARE. NO C/O PAIN/NAUSEA THIS SHIFT. HYPOTENSIVE; BP MEDS HELD THIS SHIFT. PT FOLLOWING; PATIENT IS INDEPENDENT IN ROOM. O2 @ 10L; POSSIBLE DISCHARGE WHEN O2 DEMANDS LOWER. REPORT GIVEN TO ONCOMING RN.
--- NOTE | 2020-12-21 05:23 | NUR ---
SHIFT SUMMARY A/O, ABLE TO MAKE NEEDS KNOWN. COOPERATIVE WITH CARE. CALLS AND ANSWERS QUESTIONS APPROPRIATELY. NO C/O PAIN/DISCOMFORT. INDEPDENDENT IN THE ROOM. CONTINUES WITH 10L VIA HF NC. APPEARED TO REST MUCH OF THE NIGHT. HYPOTENSION NOTED. WILL RE-CHECK THIS AM. NO ACUTE CHANGES NOTED OVERNIGHT. BED REMAINS IN LOWEST POSITION. CALL LIGHT AND BELONGINGS WITHIN REACH. CONTINUE WITH CURRENT PLAN OF CARE. REPORT TO ONCOMING RN.
--- NOTE | 2020-12-21 19:55 | NUR ---
SHIFT SUMMARY: NO ACUTE CHANGES TO REPORT THIS SHIFT. PT A&O; CALM AND COOPERATIVE WITH CARE; INDEPENDENT IN ROOM. COVID POSITIVE; O2 TITRATED TO 7L THIS SHIFT. EXPECTED D/C HOME WHEN OXYGEN DEMANDS IMPROVE. REPORT GIVEN TO ONCOMING RN.
--- NOTE | 2020-12-22 03:35 | NUR ---
SHIFT SUMMARY: VSS. AFEB. 02 94-97% ON 7L VIA HIGH FLOW NC. AAOX4. COMMUNICATES NEEDS. INFREQUENT DRY COUGHING- PT STATES DUE TO ALLERGIES. LSCTA W/ DIM BASES. RESPS EVEN, NON-LABORED AT REST. REPORTS R LOWER RIB PAIN DUE TO RECENT COUGHING, MEDICATED W/ TYLENOL EFFECTIVELY. INDEPENDENT IN ROOM. NO ACUTE CHANGES. WCTM.
[2020-12-22] MEDS ORDERED: METO25ER PO (10:51)
[2020-12-22] MEDS ORDERED: XARELTO20 MG PO (10:51)
--- NOTE | 2020-12-22 15:40 | NUR ---
PATIENT D/C'D TO HOME WITH . RX MEDICATIONS FAXED TO [facility] IN [place]. D/C INSTRUCTIONS AND EDUCATION DISCUSSED WITH PATIENT AND COPY PROVIDED. PORTABLE O2 AND FOUR WHEELED WALKER SENT HOME WITH PATIENT. PATIENT DENIES ANY FURTHER QUESTIONS OR CONCERNS.
[2021-01-04] MEDS ORDERED: THERA-D2000 UNIT PO (16:47)
[2021-01-04] MEDS ORDERED: PROPRANOLOL HC120 MG PO (16:47)
[2021-01-04] MEDS ORDERED: CELEBREX200 MG PO (16:48)
[2021-01-04] MEDS ORDERED: MONT10T PO (16:48)
[2021-01-04] MEDS ORDERED: OMEPRAZOLE MAGN20 M1 PO (16:49)
[2021-01-28] MEDS ORDERED: DOCUZEN 8.6-501 EACH PO (12:39)
[2021-01-28] MEDS ORDERED: MELA3 PO (12:40)
[2021-01-28] MEDS ORDERED: MONT10T PO (12:40)
[2021-01-28] MEDS ORDERED: MIRALAX17 GM PO (12:41)
[2021-01-28] MEDS ORDERED: PRED20 PO ×2 (12:41→12:42)
[2021-01-28] MEDS ORDERED: Prednisone10 MG PO (12:44)
[2021-01-28] MEDS ORDERED: ACET325 PO (13:08)
== END 2020-12-22 15:46 | disposition home or self-care (01) | DRG 177 ==
LOC: ER 15:07 → MEDS 19:34 → ERHOLD 19:34 → ICUE 19:34 → PCU 12-14 06:30 → MEDS 12-18 17:36
PROVIDERS: Emergency Medicine; Internal Medicine; ADMIT Internal Medicine
PROC: 8E0ZXY6 Isolation (ICD-10-PCS; principal; 2020-12-09)
PROC: XW033E5 Introduction of Remdesivir Anti-infective into Peripheral Vein, Percutaneous Approach, New Technology Group 5 (ICD-10-PCS; 2020-12-09)
PROC: 3E0D73Z Introduction of Anti-inflammatory into Mouth and Pharynx, Via Natural or Artificial Opening (ICD-10-PCS; 2020-12-10)
PROC: 5A09457 Assistance with Respiratory Ventilation, 24-96 Consecutive Hours, Continuous Positive Airway Pressure (ICD-10-PCS; 2020-12-18)
DX: U07.1 COVID-19 (principal); J12.82 Pneumonia due to coronavirus disease 2019; J96.01 Acute respiratory failure with hypoxia; Z68.41 Body mass index [BMI] 40.0-44.9, adult; B37.0 Candidal stomatitis; E66.9 Obesity, unspecified; F32.9 Major depressive disorder, single episode, unspecified; E03.9 Hypothyroidism, unspecified; I10 Essential (primary) hypertension; F41.9 Anxiety disorder, unspecified; K59.00 Constipation, unspecified; E11.9 Type 2 diabetes mellitus without complications; C73 Malignant neoplasm of thyroid gland; M06.9 Rheumatoid arthritis, unspecified; Z88.8 Allergy status to other drugs, medicaments and biological substances; Z90.710 Acquired absence of both cervix and uterus; Z90.49 Acquired absence of other specified parts of digestive tract; Z98.890 Other specified postprocedural states; Z92.3 Personal history of irradiation; Z79.1 Long term (current) use of non-steroidal anti-inflammatories (NSAID); Z79.899 Other long term (current) drug therapy
CPT/HCPCS: 36415; 51702; 71045; 71260; 80048; 80053; 81001; 82947; 83036; 83735; 84100; 84145; 84443; 85025; 85379; 94660; 94667; 94761; 94762; 96365; 97110; 97116; 97162; 97165; 97530; 97535; 99285-25; A9270; J2405; J3010; J7120; Q9967

== ENCOUNTER 2021-02-05 14:59 | Inpatient (IN) | payer BC, MEDICARE ==
[~2021-02-05] VITALS: Ht 165.1 cm; Wt 120.9 kg
[~2021-02-05 14:59] MED LIST changes: +ACET325 PO; +BUPROPION XL150 M1 PO; +CELE200 PO; +CELEBREX200 MG PO; +DOCUZEN 8.6-501 EACH PO; +DULO60 PO; +ERGO50000 PO; +LEVSOD112 PO; +MELA3 PO; +METO25ER PO; +MIRALAX17 GM PO; +MONT10T PO; +OMEP20ER PO; +OMEPRAZOLE MAGN20 M1 PO; +PRED20 PO; +PROP120ER PO; +PROPRANOLOL HC120 MG PO; +Prednisone10 MG PO; +THERA-D2000 UNIT PO; +XARELTO20 MG PO
[2021-02-05 15:54] LABS: Base Excess Venous 10.2 mmol/L; PCO2 Venous 40.6 mmHg (38-42); PO2 Venous 81.8 mmHg (38-42); pH Blood Venous 7.52 (7.34-7.37)
[2021-02-05 16:20] LABS: Alanine Aminotransfer (ALT/SGP 45 U/L (12-78); Albumin, Blood 2.4 g/dL (3.4-5.0); Albumin/Globulin Ratio 0.5 (0.8-1.8); Alk Phos 201 U/L (50-136); Anion Gap 8 mmol/L (6-16); Aspartate Aminotrans (AST/SGOT 67 U/L (12-37); Blood Urea Nitrogen 23 mg/dL (8-24); Bun/Creatinine Ratio 43.2 (12.0-20.0); CO2, Blood 31 mmol/L (21-32); Calcium, Blood 9.2 mg/dL (8.5-10.1); Chloride, Blood 95 mmol/L (98-108); Creatinine, Blood 0.53 mg/dL (0.40-1.00); Globulin, Blood 4.6 g/dL (2.2-4.0); Glomerular Filtration Rate >60 (60-); Glucose, Blood 196 mg/dL (70-99); Potassium, Blood 3.7 mmol/L (3.5-5.5); Sodium, Blood 134 mmol/L (136-145); Troponin I 0.049 ng/mL (0.000-0.040)
[2021-02-05 16:24] LABS: BASOPHILS ABSOLUTE AUTO 0.07 K/mm3 (0.00-0.23); BASOPHILS PERCENT AUTO 1 % (0-2); EOSINOPHILS ABSOLUTE AUTO 0.12 K/mm3 (0.00-0.68); EOSINOPHILS PERCENT AUTO 1 % (0-6); Hematocrit 41.5 % (33.0-51.0); Hemoglobin 13.4 g/dL (11.5-16.0); IMMATURE GRAN ABSOLUTE AUTO 0.25 K/mm3 (0.00-0.10); IMMATURE GRAN PERCENT AUTO 2 % (0-1); LYMPHOCYTES ABSOLUTE AUTO 0.81 K/mm3 (0.84-5.20); LYMPHOCYTES PERCENT AUTO 5 % (21-46); MONOCYTES ABSOLUTE AUTO 0.61 K/mm3 (0.16-1.47); MONOCYTES PERCENT AUTO 4 % (4-13); Mean Corpuscular HGB 27.9 pg (26.0-34.0); Mean Corpuscular HGB Conc 32.3 g/dL (31.5-36.5); Mean Corpuscular Volume 87 fL (80-100); NEUTROPHILS ABSOLUTE AUTO 13.21 K/mm3 (1.96-9.15); NEUTROPHILS PERCENT AUTO 88 % (41-73); NRBC ABSOLUTE 0.03 K/mm3 (0.00-0.02); NRBC Auto 0.2 /100 WBC (0.0-0.2); RDW Coefficient Variation 17.6 % (11.7-14.2); RDW Standard Deviation 53.9 fL (35.1-46.3); White Blood Cell Count 15.07 K/mm3 (4.00-11.30)
[2021-02-05 16:37] LABS: Mean Platelet Volume 10.7 fL (9.1-12.4); Platelet Count 346 K/mm3 (150-400)
[2021-02-05 16:46] LABS: Source, Urine Catheter
[2021-02-05 16:56] LABS: Appearance, Urine Cloudy (Clear); Blood, Urine 1+ (Neg); Color, Urine Amber (P-Yellow); Glucose Qualitative, Urine Neg (Neg); Ketones, Urine Neg (Neg); Leukocyte Esterase, Urine 2+ (Neg); Nitrite, Urine Neg (Neg); Protein, Urine 2+ (Neg); Urobilinogen, Urine 3+ (Normal)
[2021-02-05] MEDS ORDERED: VORI200 PO (17:04)
[2021-02-05] MEDS ORDERED: LORA.5 PO (17:05)
[2021-02-05 17:17] LABS: Bilirubin, Urine 1+ (Neg)
[2021-02-05 17:20] LABS: Other Crystals Many /hpf; Triple Phosphate Crystals Many /hpf
[2021-02-05 17:21] LABS: Bacteria Many /hpf; Squamous Epithelial Cells Not Seen /hpf (Few)
[2021-02-05 17:22] LABS: Amorphous Light (0-Heavy); Mucus Light (0-Heavy)
--- NOTE | 2021-02-05 18:07 | NUR ---
PORSCHE ARRIVED ABOUT 20 MINUTES AGO, HER WORK OF BREATHING IS INCREASED, HER ACCESSORY MUSCLES ARE IN USE, BIPAP ON 40%, ADJUSTING SETTINGS ASSESSES HER. PT IS ABLE TO ANSWER WITH HEAD NODS, SHAKES AND YES AND NOS. SATS HOVERING AROUND 90%. EVAN, RT HERE TO OBTAIN ABG.
[2021-02-05 18:15] LABS: PCO2 Arterial 44.3 mmHg (35-45); PO2 Arterial 62.4 mmHg (80-100); pH Blood Arterial 7.46 (7.35-7.45)
--- NOTE | 2021-02-05 18:37 | NUR ---
1825 ETOMODATE GIVEN PER ORDERS, PROPOFOL INFUSING @ 40MCG/MIN, INTUBATION WITH 7.5 TUBE, 24CM AT THE TEETH, LARGE AMOUNT OF EXUDATE NOTED BY AND STAFF AT THE BACK OF THE THROAT, ENTRANCE TO THE TRACHEA. PREPARING FOR CENTRAL LINE PLACEMENT. JESUS CONNORS IN ROOM TO ASSIST. EVAN,RT HERE FOR VENTILATOR.
--- NOTE | 2021-02-05 19:00 | NUR ---
ASSUMED CARE ASSUMED CARE OF PATIENT. INTUBATED- AC 18, TV 450, PEEP 5, FIO2 70%. RR 30s. SEDATED WITH PROPOFOL AT 50MCG/KG/MIN. BILATERAL SOFT WRIST RESTRAINTS IN PLACE TO PREVENT SELF-EXTUBATION. NS INFUSING AT 100CC/HR PER ORDER. MONITOR SHOWS ST, RATE 110-120. BP STABLE. OG CLAMPED. NANCE PATENT WITH CLOUDY SUE URINE. SCATTERED BRUISING NOTED. REMAINS IN AIRBORNE ISOLATION FOR POSITIVE COVID. SEE SHIFT ASSESSMENT FOR FULL ASSESSMENT.
[2021-02-05 19:57] LABS: Base Excess Venous 6.8 mmol/L; Bicarbonate Venous 29.3 mmol/L (24.0-30.0); PCO2 Venous 48.2 mmHg (38-42); PO2 Venous 57.6 mmHg (38-42); pH Blood Venous 7.42 (7.34-7.37)
[2021-02-06 06:21] LABS: PCO2 Arterial 39.1 mmHg (35-45); PO2 Arterial 78.8 mmHg (80-100); pH Blood Arterial 7.48 (7.35-7.45)
[2021-02-06 06:22] LABS: Hemoglobin 10.8 g/dL (11.5-16.0); Mean Corpuscular HGB 28.3 pg (26.0-34.0); Mean Corpuscular HGB Conc 31.8 g/dL (31.5-36.5); Mean Corpuscular Volume 89 fL (80-100); Mean Platelet Volume 10.2 fL (9.1-12.4); Platelet Count 269 K/mm3 (150-400); RDW Coefficient Variation 17.5 % (11.7-14.2); RDW Standard Deviation 56.8 fL (35.1-46.3); Red Blood Cell Count 3.81 M/mm3 (3.80-5.20); White Blood Cell Count 14.63 K/mm3 (4.00-11.30)
--- NOTE | 2021-02-06 06:29 | NUR ---
SHIFT SUMMARY NO ACUTE CHANGES DURING SHIFT. REMAINS INTUBATED- VENT SETTINGS NOW AC 18, TV 400, PEEP 5, FIO2 35%. RR MID-20s TO 30s. SEDATED WITH PROPOFOL BETWEEN 45-50MCG/KG/MIN. NOW INFUSING AT 45MCG/KG/MIN. ALSO MEDICATED WITH ATIVAN 2MG IV X 2 DOSES FOR SEDATION. ATTEMPTS TO OPEN EYES TO STIMULI. MOVES ALL EXTREMITES WEAKLY. WIGGLED TOES SLIGHTLY TO COMMAND, BUT NOT FOLLOWING OTHER COMMANDS AT THIS TIME. BP MAP >60 T/O NOC. MONITOR SHOWS ST, RATE 100-120. TMAX 101.6F. TYLENOL GIVEN X 1 DOSE WITH TEMP DECREASING TO 100.0F. OG CLAMPED T/O MOST OF NOC, BUT PLACED TO LIS THIS AM D/T POSSIBLE GASTRIC CONTENTS NOTED WITH ORAL CARE. NANCE PATENT AND DRAINING CLOUDY YELLOW URINE WTH SEDIMENT. COCCYX DECUB NOTED- PICTURES TAKEN AND DRSG PLACED. PT REPOSITIONED Q2H. NS INFUSING AT 100CC/HR PER ORDER. LEFT IJ PATENT WITH DRSG INTACT. ADDITIONAL 1500CC NS IV BOLUS GIVEN X 1. REMAINS IN ISOLATION. WILL REPORT TO ONCOMING RN WHEN AVAILABLE.
[2021-02-06 06:39] LABS: Alanine Aminotransfer (ALT/SGP 33 U/L (12-78); Albumin, Blood 1.9 g/dL (3.4-5.0); Albumin/Globulin Ratio 0.5 (0.8-1.8); Alk Phos 156 U/L (50-136); Anion Gap 7 mmol/L (6-16); Aspartate Aminotrans (AST/SGOT 53 U/L (12-37); Bilirubin, Total 0.9 mg/dL (0.1-1.0); Blood Urea Nitrogen 18 mg/dL (8-24); Bun/Creatinine Ratio 33.5 (12.0-20.0); CO2, Blood 28 mmol/L (21-32); Calcium, Blood 7.7 mg/dL (8.5-10.1); Chloride, Blood 102 mmol/L (98-108); Creatinine, Blood 0.54 mg/dL (0.40-1.00); Globulin, Blood 3.6 g/dL (2.2-4.0); Glomerular Filtration Rate >60 (60-); Glucose, Blood 186 mg/dL (70-99); Magnesium, Blood 2.1 mg/dL (1.6-2.4); Phosphorus, Blood 2.2 mg/dL (2.5-4.9); Potassium, Blood 3.4 mmol/L (3.5-5.5); Sodium, Blood 137 mmol/L (136-145); Total Protein, Blood 5.5 g/dL (6.4-8.2)
[2021-02-06 07:36] LABS: BAND PERCENT MAN 10 % (0-8); BASOPHILS PERCENT MAN 0 % (0-2); EOSINOPHILS PERCENT MAN 0 % (0-6); LYMPHOCYTES ABSOLUTE MAN 0.43 K/mm3 (0.84-5.20); LYMPHOCYTES PERCENT MAN 3 % (21-46); MONOCYTES ABSOLUTE MAN 0.14 K/mm3 (0.16-1.47); MONOCYTES PERCENT MAN 1 % (4-13); NEUTROPHILS ABSOLUTE MAN 14.04 K/mm3 (1.96-9.15); SEG NEUTROPHILS PERCENT MAN 86 % (41-73); TOTAL CELLS COUNTED 100
--- NOTE | 2021-02-06 08:30 | NUR ---
INITIAL ASSESSMENT PATIENT INTUBATED AND SEDATED. PATIENT RESPONDING TO PAINFUL STIMULI. PATIENT HAS TEMP OF 100.9 DEGREES FAHRENHEIT. PATIENT LOCALIZING MOVEMENTS TO ALL EXTREMITIES. PATIENT WEAK. PATIENT ON VENT SETTINGS OF AC 16, TV 400, PEEP 5, FIO2 35%. NONPRODUCTIVE COUGH NOTED. RR HIGH 20S TO 30S. PATIENT IN ST, HR 1-TEENS TO 120S. SBP LOW 100S TO 1-TEENS. ABDOMEN MODERATELY DISTENDED, SOFT, WITH HYPOACTIVE BS NOTED. OG IN PLACE; CLAMPED AFTER AM MEDICATIONS. DATE OF LAST BM UNKNOWN. TEMP PROBE NANCE IN PLACE DRAINING SUE, CLOUDY COLORED URINE. SCATTERED BRUISES NOTED. BUTTOCKS REDDEND AND EXCORIATED. ULCER NOTED TO COCCYX. NS AT 100 MLS/ HOUR, PROPOFOL AT 45 MCG/ KG/ MINUTE. BED LOW, CALL LIGHT IN REACH. WILL CONTINUE TO MONITOR PATIENT FREQUENTLY THROUGHOUT SHIFT.
--- NOTE | 2021-02-06 09:00 | NUR ---
DR. ROBLES UPDATED ON PATIENT STATUS. INFORMED THAT POTASSIUM 3.4 AND PHOS 2.2 THIS AM. INFORMED THAT 15 MM KPHOS ORDERED THIS AM BY ATTENDING. INFORMED THAT PATIENT HAD TMAX OF 101.6 DEGREES FAHRENHEIT DURING NIGHT PER HOT KNIFE CUTTER REPORT. INFORMED THAT HOT KNIFE CUTTER REPORTED 450 MLS OF URINE OUT DURING NIGHT. INFORMED THAT HR 1-TEENS TO 120S. INFORMED THAT RR HIGH 20S TO 30S. DR. ROBLES ASKED IF SHE WOULD LIKE PATIENT TO HAVE SEDATION VACATION AND WEAN TODAY. DR. ROBLES STATED WE WOULD START SEDATION VACATIONS AND WEANS TOMORROW MORNING.
--- NOTE | 2021-02-06 13:00 | NUR ---
PATIENT HAS TEMP OF 99.8 DEGREE FAHRENHEIT. PATIENT REMAINS SATTING 90% AND GREATER ON SAME VENT SETTINGS. HR LOW 100S TO 1-TEENS. SBP 90S TO LOW 100S. PATIENT STARTED ON VHP AT GOAL RATE OF 20 MLS/ HOUR WITH 30 ML WATER FLUSH Q4H. MINIMAL URINE OUTPUT NOTED. DR. ROBLES MADE AWARE. PROPOFOL INFUSING AT 40 MCG/ KG/ MINUTE. NO OTHER ACUTE CHANGES TO NOTE ON AT THIS TIME. WILL CONTINUE TO MONITOR.
--- NOTE | 2021-02-06 14:28 | NUR ---
DR. ROBLES INFORMED OF MINIMAL URINE OUTPUT OF AROUND 250 MLS OF URINE THIS SHIFT. PLACED ORDER FOR BOLUS.
--- NOTE | 2021-02-06 16:30 | NUR ---
PATIENT HAS TEMP OF 98.9 DEGREES FAHRENHEIT. HR LOW 100S. SBP IN THE LOW 100S. IN ROOM WITH PATIENT. NO OTHER ACUTE CHANGES TO NOTE ON AT THIS TIME. WILL CONTINUE TO MONITOR.
--- NOTE | 2021-02-06 18:41 | NUR ---
SHIFT SUMMARY PATIENT REMAINED INTUBATED AND SEDATED. PATIENT REMAINED LOCALIZING MOVEMENTS TO ALL EXTREMITIES. PATIENT HAD TMAX OF 100.9 DEGREES FAHRENHEIT. PATIENT GIVEN PRN FENTANYL TWO TIMES TO HELP WITH SIGNS OF PAIN/ INCREASED RRS. PATIENT REMAINED SATTING 90% AND GREATER ON AC 16, TV 400, PEEP 5 AND 35% FIO2. PATIENT REMAINED IN ST, HR LOW 100S TO 120S. SBP 90S TO 1-TEENS. NO BM THIS SHIFT. VHP TF STARTED THIS SHIFT AT GOAL RATE OF 20 MLS/ HOUR WITH 30 ML WATER FLUSH Q4H. 400 MLS OF OF SUE, CLOUDY URINE OUT FROM NANCE THIS SHIFT. PATIENT GIVEN 1 L NS BOLUS THIS SHIFT TO HELP WITH URINE OUTPUT. NO CHANGE IN SKIN. PATIENT REPOSITIONED Q2H. PROPOFOL AT 40 MCG/ KG/ MINUTE AND NS AT 100 MLS/ HOUR. PATIENT RECEIVED VANCO, VFEND, AND ZOSYN THIS SHIFT. PATIENT RECEIVED 15 MM KPHOS THIS AM FOR POTASSIUM OF 3.4 AND PHOS OF 2.2 THIS AM. HERE TO VISIT DURING VISITING HOURS. PATIENT APPEARS COMFORTABLE AT THIS TIME. BED LOW, CALL LIGHT IN REACH. REPORT WILL BE GIVEN TO ASSUMING INTERNAL WHOLESALER NURSE SHORTLY.
--- NOTE | 2021-02-06 19:38 | NUR ---
CARE ASSUMED REPORT RECEIVED FROM REILLY CLEARY. PROPOFOL @40, NS@100. NANCE IN PLACE DARK YELLOW OUTPUT. TF RUNNING @ 20 ML/HR VIA OG. CONTINUE ASSESSMENT AND CARE.
--- NOTE | 2021-02-07 00:11 | NUR ---
ASSESS CONTINUE ON VENT AND SEDATION WITH PROPOFOL. NO CURRENT CHANGES. CONTINE ASSESSMENT AND CARE.
--- NOTE | 2021-02-07 04:12 | NUR ---
ASSESS NO CHANGE AT THIS TIME. AM LABS SENT. PLAN ON WEAN TRIAL THIS AM. CONTINUE ASSESSMENT AND CARE.
[2021-02-07 04:14] LABS: BASOPHILS ABSOLUTE AUTO 0.03 K/mm3 (0.00-0.23); BASOPHILS PERCENT AUTO 0 % (0-2); EOSINOPHILS PERCENT AUTO 0 % (0-6); Hematocrit 29.4 % (33.0-51.0); Hemoglobin 9.4 g/dL (11.5-16.0); IMMATURE GRAN ABSOLUTE AUTO 0.49 K/mm3 (0.00-0.10); IMMATURE GRAN PERCENT AUTO 4 % (0-1); LYMPHOCYTES ABSOLUTE AUTO 0.46 K/mm3 (0.84-5.20); LYMPHOCYTES PERCENT AUTO 4 % (21-46); MONOCYTES ABSOLUTE AUTO 0.53 K/mm3 (0.16-1.47); MONOCYTES PERCENT AUTO 5 % (4-13); Mean Corpuscular HGB 28.7 pg (26.0-34.0); Mean Corpuscular Volume 90 fL (80-100); Mean Platelet Volume 10.1 fL (9.1-12.4); NEUTROPHILS ABSOLUTE AUTO 10.07 K/mm3 (1.96-9.15); NEUTROPHILS PERCENT AUTO 87 % (41-73); NRBC ABSOLUTE 0.02 K/mm3 (0.00-0.02); NRBC Auto 0.2 /100 WBC (0.0-0.2); Platelet Count 221 K/mm3 (150-400); RDW Coefficient Variation 17.9 % (11.7-14.2); RDW Standard Deviation 57.4 fL (35.1-46.3); Red Blood Cell Count 3.27 M/mm3 (3.80-5.20); White Blood Cell Count 11.58 K/mm3 (4.00-11.30)
[2021-02-07 04:34] LABS: Alanine Aminotransfer (ALT/SGP 57 U/L (12-78); Albumin, Blood 1.7 g/dL (3.4-5.0); Albumin/Globulin Ratio 0.5 (0.8-1.8); Alk Phos 154 U/L (50-136); Anion Gap 5 mmol/L (6-16); Aspartate Aminotrans (AST/SGOT 174 U/L (12-37); Bilirubin, Total 1.1 mg/dL (0.1-1.0); Blood Urea Nitrogen 15 mg/dL (8-24); Bun/Creatinine Ratio 32.4 (12.0-20.0); CO2, Blood 26 mmol/L (21-32); Calcium, Blood 6.9 mg/dL (8.5-10.1); Chloride, Blood 108 mmol/L (98-108); Creatinine, Blood 0.46 mg/dL (0.40-1.00); Globulin, Blood 3.1 g/dL (2.2-4.0); Glomerular Filtration Rate >60 (60-); Glucose, Blood 161 mg/dL (70-99); Phosphorus, Blood 1.8 mg/dL (2.5-4.9); Potassium, Blood 3.1 mmol/L (3.5-5.5); Sodium, Blood 139 mmol/L (136-145); Total Protein, Blood 4.8 g/dL (6.4-8.2); Vancomycin, Random 15.8 ug/mL
--- NOTE | 2021-02-07 05:54 | NUR ---
ASSESS- ATTEMPT WEAN-PT COUGHING, NOT PETER VENT. SHAKING ARMS. PROPOFOL CONTINUED AT 45, 50 MCG FENT GIVEN IVP. LOW K AND PHOS, REPORT MANAGER AWARE. CALL .
--- NOTE | 2021-02-07 08:40 | NUR ---
INITIAL ASSESSMENT PATIENT INTUBATED AND ON SEDATION. PATIENT RESPONDS TO VERBAL STIMULI. PATIENT LOCALIZING MOVEMENTS. PATIENT AFEBRILE. PATIENT TREMULOUS IN SHOULDERS AND ARMS BEFORE PRN FENTANYL GIVEN SHORT TIME AGO. LUNGS CLEAR. LOWER LOBES DIMINISHED. PATIENT ON VENT SETTINGS OF AC 16, TV 400, PEEP 5 AND 35% FIO2. SCANT AMOUNT OF THICK ZUNIGA/ PINK SECRETIONS SUCTIONED FROM ETT. RR 20S TO 30S. PATIENT IN ST, HR LOW 100S TO 1-TEENS. SBP LOW 100S TO 1-TEENS. ABDOMEN MODERATELY DISTENDED WITH HYPOACTIVE BS NOTED. OG IN PLACE. VHP TF INFUSING AT GOAL RATE OF 30 MLS PER HOUR WITH 30 ML WATER FLUSH Q4H. 170 MLS TF RESIDUAL OBTAINED AND REINSTILLED. NANCE DRAINING CLOUDY, SUE COLORED URINE. NO BM DOCUMENTED SINCE ADMIT TO HOSPITAL. SCATTERED BRUISES NOTED. BRUISE AND HEMATOMA TO BACK OF L UPPER ARM. HEMATOMA SOFTER THAN YESTERDAY. DR. ROBLES AWARE. BUTTOCKS REDDENED. COCCYX TO ULCER. DRESSING IN PLACE AND IS C/D/I. PROPOFOL INFUSING AT 45 MCG/ KG/ MINUTE, NS AT 100 MLS/ HOUR. BED LOW, CALL LIGHT IN REACH. WILL CONTINUE TO MONITOR PATIENT FREQUENTLY THROUGHOUT SHIFT.
--- NOTE | 2021-02-07 09:00 | NUR ---
DR. ROBLES UPDATED ON PATIENT. INFORMED THAT NIGHT RN REPORTED LUMP ON NECK. OBSERVED AND IS NOT CONCERNED; FATTY TISSUE. INFORMED OF LOW POTASSIUM AND PHOS THIS AM AND THAT 15 MM KPHOS INFUSING. INFORMED OF CALCIUM OF 6.9. INFORMED THAT URINE CULTURE CAME BACK POSITIVE FOR PROTEUS MIRABILIS. INFORMED THAT PATIENT WAS NOT TOLERATING VENTILATOR AND WAS COUGHING THIS AM THUS WEAN WAS NOT PERFORMED. STATED THAT WILL START WEANS IN MORNING AND WILL USE PRECEDEX FOR IT.
--- NOTE | 2021-02-07 12:30 | NUR ---
PATIENT AFEBRILE. HR IN THE 1-TEENS. SBP IN THE LOW 100S. TF RESIDUAL OF 180 MLS OBTAINED AND REINSTILLED. BLOOD SUGAR OF 218; COVERAGE GIVEN. NO OTHER ACUTE CHANGES TO NOTE ON AT THIS TIME. WILL CONTINUE TO MONITOR.
--- NOTE | 2021-02-07 16:00 | NUR ---
PATIENT AFEBRILE. HR IN THE 1-TEENS. SBP LOW 100S TO 130S. PATIENT REMAINS SATTING 90% AND GREATER ON SAME VENT SETTINGS. TF RESIDUAL OF 180. NO OTHER ACUTE CHANGES TO NOTE ON AT THIS TIME. WILL CONTINUE TO MONITOR.
--- NOTE | 2021-02-07 18:44 | NUR ---
SHIFT SUMMARY PATIENT REMAINED INTUBATED AND SEDATED. PATIENT RESPONDING TO EITHER VERBAL STIMULI OR NOXIOUS STIMULI DEPENDING ON HOW SEDATED. PATIENT REMAINED AFEBRILE. PATIENT GIVEN PRN FENTANYL FOR SIGNS OF PAIN. PATIENT REMAINED SATTING 90% AND GREATER ON VENT SETTINGS OF AC 16, TV 400, PEEP 5 AND 35% FIO2. DR. ROBLES STATED THAT WEANS WILL BEGIN TOMORROW AND ORDERED PRECEDEX TO HELP PATIENT TOLERATE VENTILATOR AND WEAN BETTER. RR 20S TO 30S. PATIENT REMAINED IN ST, HR LOW 100S TO 1-TEENS. SBP LOW 100S TO 130S. NO BM THIS SHIFT. TF REMAINED AT GOAL RATE. RESIDUALS 170 TO 180S. 540 MLS OF CLOUDY, SUE COLORED URINE FROM NANCE. NO CHANGE TO SKIN. PATIENT REPOSITIONED THROUGHOUT SHIFT. CAME TO VISIT TODAY. PATIENT APPEARS COMFORTABLE AT THIS TIME. BED LOW, CALL LIGHT IN REACH. REPORT WILL BE GIVEN TO ONCOMING SENIOR ONLINE MARKETING MANAGER NURSE SHORTLY.
--- NOTE | 2021-02-07 19:30 | NUR ---
ASSUMED CARE THIS STUDENT NURSE ASSUMED CARE OF THIS PT FROM REILLY CLEARY AT 1930. PT LYING IN BED INTUBATED AND SEDATED ON PROPOFOL @ 45MCG/KG/MIN. VENT SETTINGS AC 16/400/5%/35. BILATERAL SOFT WRIST RESTRAINTS IN PLACE. VHP VIA OG TUBE AT GOAL RATE OF 20ML/HR AND NS INFUSING @ 100ML/HR. PT HAS A CL THAT IS INFUSING MEDICATIONS MENTIONED ABOVE AND A 20G IV INTO THE LT FA, SL. TEMP NANCE PATENT AND DRAINING CLEAR/YELLOW URINE. VS STABLE WITHSBP IN THE 110'S, SPO2 >90%, HR 90'S-100'S, AND RR IN 20'S. WILL CONTINUE TO MONITOR.
[2021-02-08 04:24] LABS: BASOPHILS ABSOLUTE AUTO 0.02 K/mm3 (0.00-0.23); BASOPHILS PERCENT AUTO 0 % (0-2); EOSINOPHILS ABSOLUTE AUTO 0.01 K/mm3 (0.00-0.68); EOSINOPHILS PERCENT AUTO 0 % (0-6); Hematocrit 28.9 % (33.0-51.0); Hemoglobin 9.1 g/dL (11.5-16.0); IMMATURE GRAN ABSOLUTE AUTO 0.56 K/mm3 (0.00-0.10); IMMATURE GRAN PERCENT AUTO 6 % (0-1); LYMPHOCYTES ABSOLUTE AUTO 0.41 K/mm3 (0.84-5.20); LYMPHOCYTES PERCENT AUTO 4 % (21-46); MONOCYTES ABSOLUTE AUTO 0.57 K/mm3 (0.16-1.47); MONOCYTES PERCENT AUTO 6 % (4-13); Mean Corpuscular HGB 28.5 pg (26.0-34.0); Mean Corpuscular HGB Conc 31.5 g/dL (31.5-36.5); Mean Corpuscular Volume 91 fL (80-100); Mean Platelet Volume 10.2 fL (9.1-12.4); NEUTROPHILS ABSOLUTE AUTO 8.13 K/mm3 (1.96-9.15); NEUTROPHILS PERCENT AUTO 84 % (41-73); NRBC ABSOLUTE 0.02 K/mm3 (0.00-0.02); NRBC Auto 0.2 /100 WBC (0.0-0.2); Platelet Count 205 K/mm3 (150-400); RDW Coefficient Variation 18.1 % (11.7-14.2); Red Blood Cell Count 3.19 M/mm3 (3.80-5.20)
[2021-02-08 04:31] LABS: Base Excess Venous 2.6 mmol/L; Bicarbonate Venous 26.4 mmol/L (24.0-30.0); PCO2 Venous 46.8 mmHg (38-42); PO2 Venous 167 mmHg (38-42); pH Blood Venous 7.38 (7.34-7.37)
[2021-02-08 04:44] LABS: Anion Gap 5 mmol/L (6-16); BAND PERCENT MAN 1 % (0-8); BASOPHILS PERCENT MAN 0 % (0-2); Blood Urea Nitrogen 15 mg/dL (8-24); Bun/Creatinine Ratio 39.5 (12.0-20.0); CO2, Blood 28 mmol/L (21-32); Calcium, Blood 7.5 mg/dL (8.5-10.1); Chloride, Blood 107 mmol/L (98-108); Creatinine, Blood 0.38 mg/dL (0.40-1.00); EOSINOPHILS PERCENT MAN 0 % (0-6); Glomerular Filtration Rate >60 (60-); Glucose, Blood 166 mg/dL (70-99); LYMPHOCYTES ABSOLUTE MAN 0.58 K/mm3 (0.84-5.20); LYMPHOCYTES PERCENT MAN 6 % (21-46); METAMYELOCYTE ABSOLUTE MAN 0.09 K/mm3 (0.00-0.00); METAMYELOCYTE PERCENT MAN 1 % (0-0); MONOCYTES ABSOLUTE MAN 0.19 K/mm3 (0.16-1.47); MONOCYTES PERCENT MAN 2 % (4-13); Magnesium, Blood 1.9 mg/dL (1.6-2.4); NEUTROPHILS ABSOLUTE MAN 8.82 K/mm3 (1.96-9.15); Phosphorus, Blood 1.7 mg/dL (2.5-4.9); Potassium, Blood 3.3 mmol/L (3.5-5.5); SEG NEUTROPHILS PERCENT MAN 90 % (41-73); Sodium, Blood 140 mmol/L (136-145); TOTAL CELLS COUNTED 100
--- NOTE | 2021-02-08 05:21 | NUR ---
SBT PRECEDEX STARTED AT 0.2MCG/KG/HR AND SLOWLY TITRATED UP TO 0.7MCG/KG/HR; PROPOFOL DECRASED TO 10MCG/KG/MIN BY REILLY ARANGO. AT 0430 SBT INITIATED BY RT ON PS 16/5/35% PT REMAINED DROWSY, BUT WAS AROUSABLE AND ABLE TO FOLLOW COMMANDS. VS REMAINED STABLE WITH RR IN HIGH 20'S-LOW 30'S, TV >350. FOLLOWING SBT PRECEDEX TITRATED DOWN TO 0.5MCG/KG/HR AND PROPOFOL REMAINS AT 10MCG/KG/MIN.
--- NOTE | 2021-02-08 05:25 | NUR ---
END OF SHIFT SUMMARY PT REMAINED INTUBATED AND SEDATED. PROPOFOL DECREASED TO 10MCG/KG/MIN AND PRECEDEX INFUSING AT 0.5MCG/KG/HR FOLLOWING SBT. NS STILL INFUSING AT 100ML/HR. PT REMAINED DROWSY, BUT AROUSBALE THROUGHOUT SHIFT; ABLE TO FOLLOW COMMANDS. BLURB WRITER STRENGTHS WEAK AND EQUAL BILATERALLY WITH STRONG RADIAL AND PEDAL PULSES. RHONCHI LUNG SOUNDS PRESENT AT BEGINNING OF SHIFT, BUT IMPROVED TO CLEAR AND DIM IN BASES AFTER SUCTIONING AND COUGHING. PT WOULD EASILY COUGH ON THE VENT WITH REPOSITIONING, IMPROVED WITH SUCTIONING. TEMP NANCE REMAINED PATENT AND URINE DARKENED FROM YELLOW TO DARK YELLOW WITH MINIMAL OUTPUT. NO INSULIN REQUIRED DURING SALES MERCHANDISE ASSOCIATE D/T CBG REMAINING UNDER 200. TF REMAINS AT GOAL RATE OF 20ML/HR WITH RESIDUALS OF 175ML THEN 125ML. NO BM MOVEMENT, BUT BOWEL TONES BECAME MORE ACTIVE BY END OF SHIFT. WILL CONTINUE TO MONITOR UNTIL HANDOFF REPORT GIVEN TO ONCOMING RN.
--- NOTE | 2021-02-08 06:00 | NUR ---
PODOPEDIATRICIAN DOCUMENTATION REVIEW I HAVE READ AND AGREE WITH ALL NOTES ENTERED BY FOR THIS SHIFT.
--- NOTE | 2021-02-08 07:30 | NUR ---
Provider Call Dr. Purcell called for K/Phos replacement. Provider to place orders.
--- NOTE | 2021-02-08 08:50 | NUR ---
Care Assumed 0700 Intubated and sedated. Propofol GTT 10 mcg/kg/min and Precedex 0.5 mcg/kg/hr when care assumed, placed on SB (per nightshift RN Precedex only to be used during SBT), NS 100 ml/hr infusing via central line to [facility]. Pt attempts to open eyes during verbal stimuli but unable to follow commands at this time. Vent setting AC 16/400/5/35%, SPO2 > 90%. Lung sounds clear/dim. Small thin sadler secretion's. VHP at goal of 20 ml/hr. Temp ng in place with 125 ml clear/yellow urine. See full assessment for details. VSS. Sinus tach. SWB in place.
--- NOTE | 2021-02-08 10:59 | NUR ---
Provider visit Dr. Jones at bedside. Vent settings changed to PS 12/5, FIO2 35%. Pt tolerating well. Sedated with Precedex 0.6 mcg/kg/hr and PRN Fenantyl 50 mcg given per emar. Propofol on SB. Per Dr. Jones titrate propofol 5-10 mcg/kg/min, if needed for sedation. Pt unable to follow commands when propofol initially placed on SB, Pulling at lines,thrashing in bed, and Fenantyl given per emar for adjuct sedation. VSS.
--- NOTE | 2021-02-08 11:59 | NUR ---
DRESSING CHANGE - COCCYX Coccyx dressing change, cleaned with wound cleanser, patted dry, calcium alginate and foam dressing applied. Unstagable pressure ulcer. Pt with incresed RR rate and coughing but able to follow directions. Nods no to being in pain and squeezes hand bilaterally, strong mold stamper. Precedex GTT 0.7 Mcg/kg/hr and propofol GTT 10 MCG/KG/MIN. RR 32's and tolerating vent after titerating precedex and propofol.
--- NOTE | 2021-02-08 13:51 | NUR ---
UPDATE- AT BEDSIDE All questions answered and updated on pt status. VHP changed to goal of 30 ml/hr.
--- NOTE | 2021-02-08 17:50 | NUR ---
Left upper extremity swelling During 1600 assessment patients left upper arm appears more swollen compared to prior assessment. All infusion placed on SB including sedation, see flow sheet. Central line flushing and returning blood but dressing appears to be leaking. Charge nurse, Victoria, made aware and Dr. Womack called to update on patient status. Chest x-ray and duplex scan of upper extrem completed. Duplex results reported from imaging of superficial thrombus and no DVT, Dr. Womack updated. Charge nurse attempted PICC without success. Pt off sedation and able to follow directions, calm and cooperative. Nods yes to recieving PICC. Dr. Jones at bedside around 1730, central line dressed change completed by provider, sutures in place, and two ports return blood but all ports flush. Precedex GTT restarted at 0.5 mcg/kg/hr per Dr. Jones, Propofol placed on SB. NS infusing at 100 ml/hr. VSS. Warm compress applied to left upper arm per Dr. Womack.
--- NOTE | 2021-02-08 19:36 | NUR ---
Shift Summary Pt continues to be intubated and sedated. PS 10/5, FIO2 35%, to be changed to AC mode per Dr. Jones during shift change. Precedex GTT 0.5 mcg/kg/hr, infusing via LIJ. Pt able to follow directions. Britton with 450 ml of urine output, sid/clear. vhp at goal of 30 ml/hr. Left upper extrem with warm compress in place. Swelling continues to be present. no pitting or tenderness noted. NSR. VSS. Will report to oncoming shift.
--- NOTE | 2021-02-08 19:59 | NUR ---
ASSUMPTION OF CARE PT INTUBATED AND SEDATED. PRECEDEX INFUSING AT 0.5MCG/MIN. PROPOFOL CURRENTLY ON STANDBY. PT FOLLOWS COMMANDS AND NODS HEAD APPROPRIATELY. VENT SETTINGS CHANGED AT SHIFT CHANGE, NOW AC 16/400/5/35%. NANCE PATENT AND DRAINING TO GRAVITY. LEFT ARM WITH WARM COMPRESS TO DECREASE SWELLING. PT DENIES PAIN AT THIS TIME. TF VHP RUNNING AT GOAL RATE OF 30 WITH 30 Q4H WATER FLUSHES. LUNG CLEAR, DIMINISHED BASES. VSS, HR SINUS TACH ON MONITOR, SBP 120'S, SPO2 95%
[2021-02-09 04:09] LABS: BASOPHILS ABSOLUTE AUTO 0.06 K/mm3 (0.00-0.23); BASOPHILS PERCENT AUTO 1 % (0-2); Hematocrit 31.4 % (33.0-51.0); Hemoglobin 9.9 g/dL (11.5-16.0); LYMPHOCYTES ABSOLUTE AUTO 0.43 K/mm3 (0.84-5.20); LYMPHOCYTES PERCENT AUTO 5 % (21-46); MONOCYTES ABSOLUTE AUTO 0.49 K/mm3 (0.16-1.47); MONOCYTES PERCENT AUTO 6 % (4-13); Mean Corpuscular HGB 28.5 pg (26.0-34.0); Mean Corpuscular HGB Conc 31.5 g/dL (31.5-36.5); Mean Corpuscular Volume 91 fL (80-100); Mean Platelet Volume 9.7 fL (9.1-12.4); NRBC ABSOLUTE 0.02 K/mm3 (0.00-0.02); NRBC Auto 0.2 /100 WBC (0.0-0.2); Platelet Count 200 K/mm3 (150-400); RDW Coefficient Variation 18.4 % (11.7-14.2); RDW Standard Deviation 59.7 fL (35.1-46.3); Red Blood Cell Count 3.47 M/mm3 (3.80-5.20)
[2021-02-09 04:10] LABS: EOSINOPHILS ABSOLUTE AUTO 0.01 K/mm3 (0.00-0.68); EOSINOPHILS PERCENT AUTO 0 % (0-6); IMMATURE GRAN ABSOLUTE AUTO 0.62 K/mm3 (0.00-0.10); IMMATURE GRAN PERCENT AUTO 8 % (0-1); NEUTROPHILS ABSOLUTE AUTO 6.49 K/mm3 (1.96-9.15); NEUTROPHILS PERCENT AUTO 80 % (41-73)
[2021-02-09 04:29] LABS: Alanine Aminotransfer (ALT/SGP 95 U/L (12-78); Albumin, Blood 1.8 g/dL (3.4-5.0); Albumin/Globulin Ratio 0.6 (0.8-1.8); Alk Phos 167 U/L (50-136); Anion Gap 6 mmol/L (6-16); Aspartate Aminotrans (AST/SGOT 218 U/L (12-37); Bilirubin, Total 1.2 mg/dL (0.1-1.0); Blood Urea Nitrogen 16 mg/dL (8-24); CO2, Blood 28 mmol/L (21-32); Calcium, Blood 7.8 mg/dL (8.5-10.1); Chloride, Blood 106 mmol/L (98-108); Creatinine, Blood 0.36 mg/dL (0.40-1.00); Globulin, Blood 3.1 g/dL (2.2-4.0); Glomerular Filtration Rate >60 (60-); Glucose, Blood 169 mg/dL (70-99); Magnesium, Blood 1.9 mg/dL (1.6-2.4); Phosphorus, Blood 1.8 mg/dL (2.5-4.9); Potassium, Blood 3.5 mmol/L (3.5-5.5); Sodium, Blood 140 mmol/L (136-145); Total Protein, Blood 4.9 g/dL (6.4-8.2)
[2021-02-09 04:30] LABS: BAND PERCENT MAN 4 % (0-8); BASOPHILS PERCENT MAN 0 % (0-2); EOSINOPHILS PERCENT MAN 0 % (0-6); LYMPHOCYTES ABSOLUTE MAN 0.56 K/mm3 (0.84-5.20); LYMPHOCYTES PERCENT MAN 7 % (21-46); METAMYELOCYTE ABSOLUTE MAN 0.16 K/mm3 (0.00-0.00); METAMYELOCYTE PERCENT MAN 2 % (0-0); MONOCYTES ABSOLUTE MAN 0.16 K/mm3 (0.16-1.47); MONOCYTES PERCENT MAN 2 % (4-13); SEG NEUTROPHILS PERCENT MAN 85 % (41-73); TOTAL CELLS COUNTED 100
--- NOTE | 2021-02-09 05:56 | NUR ---
Shift Summary Pt remains intubated and sedated. Precedex gtt at 0.7mcg, NS at 100ml. Pt opens eyes to verbal stimuli, follows commands and nods head appropriately. PRN 50mcg Fentanyl given twice this shift for pain. Britton patent and draining sid urine to gravity. TF VHP running at goal rate of 30. Warm compress to left arm, swelling still noted non-pitting. Vent settings remain AC 16/400/5/35%
--- NOTE | 2021-02-09 09:00 | NUR ---
Care Assumed 0700 Intubated and sedated. Vent: AC 16/400/5/35%, SPO2 > 90%. Precedex 0.7 mcg/kg/hr, via central line to [facility]. Pt able to follow commands, squeezes hand bilaterally, strong termination clerk, and attempts to open eyes. Nods no when asked if in pain. VHP at goal, residual of 225. Britton in place, draning to gravity, dark yellow 75 ml urine. SWB in place. NSR. VSS.
--- NOTE | 2021-02-09 10:30 | NUR ---
Vent settings changes - [address] Womack pt changed to PS 8/5, FIO2 35%. Pt tolerating well.
--- NOTE | 2021-02-09 12:03 | NUR ---
Update- Provider Visit Dr. Womack in to see patient, new orders recieved see emar. Pt to be moved to chair and NS 100 ml/hr stopped per provider. Pt changed to PS 5/5, FIO2 35%, tolerating well. Precedex 0.7 mcg/kg/hr.Pt able to follow commands, moves all extrems when asked, and able to nod yes/no to simple questions. Attempts to open eyes as well. NSR. VSS.
--- NOTE | 2021-02-09 14:00 | NUR ---
UPDATE- From chair to bed Pt transfered to chair using cieling lift. Pt with increased RR and coughing spells, and pulling on restraints. Per Dr. Womack pt back to bed, decreased RR after this. Looks more comfortable.
--- NOTE | 2021-02-09 16:30 | NUR ---
Update- at bedside Pts at bedside and updated on possible extubation tomorrow. would like to be called prio so he can be at bedside during extubation. Pt cotninues to follow commands/communicates. Having frequent coughing spells with icnreased RR HIGH 30 OR 40'S, treated per emar.
--- NOTE | 2021-02-09 18:38 | NUR ---
Shift Summary Pt remains on PS 5/5, FIO2 35%. To be changed to AC previous vent settings at 1930, RT and noc nurse aware. Precedex 0.7 mcg/kg/hr and Fentanyl 50 mcg PRN needed for adjuct sedation. Pt able to follow commands. Around 181 Propofol restarted at 5 mcg/kg/min due to pt with increased agitation, RR, hypertensive, and pulling on restraints. at bedside around 1600, pt attempting to talk to pt, coughing/not tolerating vent at times. Treated per emar. Pt hypertensive at this time and recieved new orders from Dr. Womack, see emar. NSR. VHP at goal. Britton in place, dark sid urine. SWB in place. left around 1800.
[2021-02-10 03:11] LABS: PCO2 Arterial 43.3 mmHg (35-45); PO2 Arterial 55.1 mmHg (80-100); pH Blood Arterial 7.45 (7.35-7.45)
[2021-02-10 05:23] LABS: Hematocrit 32.9 % (33.0-51.0); Hemoglobin 10.5 g/dL (11.5-16.0); Mean Corpuscular HGB 28.8 pg (26.0-34.0); Mean Corpuscular HGB Conc 31.9 g/dL (31.5-36.5); Mean Corpuscular Volume 90 fL (80-100); Mean Platelet Volume 10.2 fL (9.1-12.4); NRBC ABSOLUTE 0.07 K/mm3 (0.00-0.02); NRBC Auto 0.8 /100 WBC (0.0-0.2); Platelet Count 199 K/mm3 (150-400); RDW Coefficient Variation 18.7 % (11.7-14.2); RDW Standard Deviation 61.1 fL (35.1-46.3); Red Blood Cell Count 3.65 M/mm3 (3.80-5.20); White Blood Cell Count 8.33 K/mm3 (4.00-11.30)
[2021-02-10 05:42] LABS: Anion Gap 6 mmol/L (6-16); Blood Urea Nitrogen 15 mg/dL (8-24); Bun/Creatinine Ratio 45.3 (12.0-20.0); CO2, Blood 29 mmol/L (21-32); Calcium, Blood 7.8 mg/dL (8.5-10.1); Chloride, Blood 104 mmol/L (98-108); Creatinine, Blood 0.33 mg/dL (0.40-1.00); Glomerular Filtration Rate >60 (60-); Glucose, Blood 152 mg/dL (70-99); Potassium, Blood 3.8 mmol/L (3.5-5.5); Sodium, Blood 139 mmol/L (136-145)
[2021-02-10 05:53] LABS: BAND PERCENT MAN 3 % (0-8); BASOPHILS PERCENT MAN 0 % (0-2); EOSINOPHILS PERCENT MAN 0 % (0-6); LYMPHOCYTES ABSOLUTE MAN 0.33 K/mm3 (0.84-5.20); LYMPHOCYTES PERCENT MAN 4 % (21-46); METAMYELOCYTE ABSOLUTE MAN 0.16 K/mm3 (0.00-0.00); METAMYELOCYTE PERCENT MAN 2 % (0-0); MONOCYTES PERCENT MAN 0 % (4-13); MYELOCYTE ABSOLUTE MAN 0.08 K/mm3 (0.00-0.00); MYELOCYTE PERCENT MAN 1 % (0-0); NEUTROPHILS ABSOLUTE MAN 7.74 K/mm3 (1.96-9.15); SEG NEUTROPHILS PERCENT MAN 90 % (41-73); TOTAL CELLS COUNTED 100
--- NOTE | 2021-02-10 06:18 | NUR ---
SHIFT SUMMARY PT INTUBATED/SEDATED. OPENS EYES TO VERBAL STIMULI, FOLLOWS COMMANDS, NODS HEAD APPROPRIATELY. GETS AGITATED WHEN AWAKE, NODS HEAD YES WHEN ASKED IF IN PAIN, PRN FENTANYL GIVEN PER CHARTING. TF VHP RUNNING AT GOAL RATE OF 30 WITH 30 Q4H WATER FLUSHES. PRECEDEX INFUSING AT 0.7 MCG, PROPOFOL AT 20 MCG. NANCE PATENT AND DRAINING SUE URINE TO GRAVITY. NO BOWEL MOVEMENT THIS SHIFT. VSS, SBP 120-130'S, SR ON MONITOR HR 80-100, SPO2 >90% ON AC 18/400/5/35%.
--- NOTE | 2021-02-10 09:00 | NUR ---
CARE ASSUMED 0700 Pt intubated and sedated. Vent settings AC 16/400/5/35% when care assumed at 0700, FIO2 increased to 50% per RT. Pt appears more relaxed when "100% FIO2" provided during suctioning, per RT FIO2 increased to 50%, SPO2 > 90%. Pt with increased agitation, RR 30's-40's, coughing frequently, with increased peak pressure (40's). Propofol GTT titerated to 35 mcg/kg/min and Precedex 0.7 mcg/kg/hr. Pt able to follow commands, attempting to open eyes, nods yes to being in pain, when asked where pain is location, pt nods "yes" to lungs, pulling on restraints. Treated per emar with Ativan and Fentanyl, unable to relax with verbal redirection. BP stbale. Sinus tachy (110-120's). VHP at goal, resiudal of 175. Britton in place, sid urine, temp 100.9. SWB in place.
--- NOTE | 2021-02-10 09:21 | NUR ---
Update- Provider visit Dr. Womack updated on current patient status, increased RR, pt awake/stating being in pain. Propofol GTT 35 MCG/KG/MIN and Precedex 0.7 mcg/kg/hr. Requiring frequent Fentanyl 50 mcg PRN. Recieved orders to titrate Precedex to 1.4 mcg/kg/hr and titrate Propofol down as tolerated.
--- NOTE | 2021-02-10 13:03 | NUR ---
UPDATE- VENT SETTINGS CHANGES Dr. Womack at bedside, new orders recieved. Vent setttings changed to A/C PC 16/20/5/40%, pt tolerating this much better. RR low 30's, peak pressures 28-29, spo2 > 95%. Pt also requires more sedation, Propofol GTT 40 MCG/KG/MIN AND PRECEDEX 1.2 MCG/KG/HR. FENTANYL 100 mcg given per provider order to help with sedation. New orders recieved for fentanyl 50-100 mcg for pain/adjuct sedation, see emar. Pt also hypotensive, recieved orders to start Levophed if SBP < 90 or MAP < 60, currently BP 94/59, MAP 69. Bolus of NS and after that maintaince fluids of 75 ml/hr. Pt resting/sleeping after this intervention. Temp 101.3 from temamado ng.
--- NOTE | 2021-02-10 16:13 | NUR ---
Update- increased agitation, SPO2 decreased (85%) Pt coughing frequently and not able to follow commands at this time. Treated per emar with Fenantyl. at bedside attempting to talk to patient. Explained to that patient is well sedated so she may not be able to respond. Well sedated to tolerate being on vent. states understanding. Propofol GTT 50 mcg/kg/min and Precedex 1.4 mcg/kg/hr. VHP at goal. Temp ng in place (100.7).
--- NOTE | 2021-02-10 17:57 | NUR ---
Shift Summary Pt intubated and sedated. Vent settings AC PC 16/20/5/40%, SPO2 > 85%. Propofol GTT 50 mcg/kg/min and Precedex 1.4 mcg/kg/hr, pt responds to noxious stimuli at this time. Per Dr. Womack no sedation vacation/SBT until tomorrow (dayshift). NS @ 75 ml/hr for BP support. Levophed has not been started, MAP > 65. VHP @ 25 ml/hr, goal. T-max 101.8, temp ng in place, dark sid clear urine. NSR to sinus tach. Will report to oncoming shift.
--- NOTE | 2021-02-10 22:50 | NUR ---
SHIFT ASSESSMENT ASSUMED CARE OF PT @ 1900. REPORT RECEIVED FROM REILLY ASKEW. PT INTUBATED AND SEDATED. VENT SETTINGS A/C PC 16/20/5/40% UPON INITIAL ASSESSMENT FIO2 TITRATED UP TO 50% AFTER BEDBATH. PT NOT FOLLOWING COMMANDS BUT APPEARS VERY UNCOMFORTABLE, RR IN THE 30'S, MEDICATED c PRN FENTNAYL. PRECEDEX GTT @ 1.4, PROPOFOL GTT @ 50MCG/KG/MIN. T-MAX 102.6, PRN TYLENOL GIVEN WELL ICE PACKS AND FAN. CENTRAL LINE DRESSING CHANGED. TEMP NANCE CATH DRAINING YELLOW URINE. WILL CONTINUE TO MONITOR CLOSELY.
[2021-02-11 04:10] LABS: BASOPHILS ABSOLUTE AUTO 0.05 K/mm3 (0.00-0.23); BASOPHILS PERCENT AUTO 1 % (0-2); Hematocrit 31.2 % (33.0-51.0); Hemoglobin 9.9 g/dL (11.5-16.0); Mean Corpuscular HGB 28.9 pg (26.0-34.0); Mean Corpuscular HGB Conc 31.7 g/dL (31.5-36.5); Mean Corpuscular Volume 91 fL (80-100); Mean Platelet Volume 10.2 fL (9.1-12.4); NRBC ABSOLUTE 0.12 K/mm3 (0.00-0.02); NRBC Auto 1.1 /100 WBC (0.0-0.2); Platelet Count 158 K/mm3 (150-400); RDW Coefficient Variation 19.2 % (11.7-14.2); RDW Standard Deviation 62.3 fL (35.1-46.3); Red Blood Cell Count 3.43 M/mm3 (3.80-5.20); White Blood Cell Count 10.61 K/mm3 (4.00-11.30)
[2021-02-11 04:13] LABS: EOSINOPHILS ABSOLUTE AUTO 0.12 K/mm3 (0.00-0.68); EOSINOPHILS PERCENT AUTO 1 % (0-6); IMMATURE GRAN ABSOLUTE AUTO 0.89 K/mm3 (0.00-0.10); IMMATURE GRAN PERCENT AUTO 8 % (0-1); LYMPHOCYTES ABSOLUTE AUTO 0.78 K/mm3 (0.84-5.20); LYMPHOCYTES PERCENT AUTO 7 % (21-46); MONOCYTES ABSOLUTE AUTO 0.23 K/mm3 (0.16-1.47); MONOCYTES PERCENT AUTO 2 % (4-13); NEUTROPHILS ABSOLUTE AUTO 8.54 K/mm3 (1.96-9.15); NEUTROPHILS PERCENT AUTO 80 % (41-73)
[2021-02-11 04:29] LABS: Alanine Aminotransfer (ALT/SGP 94 U/L (12-78); Albumin, Blood 1.4 g/dL (3.4-5.0); Albumin/Globulin Ratio 0.5 (0.8-1.8); Alk Phos 154 U/L (50-136); Anion Gap 5 mmol/L (6-16); Aspartate Aminotrans (AST/SGOT 155 U/L (12-37); Bilirubin, Total 0.9 mg/dL (0.1-1.0); Blood Urea Nitrogen 15 mg/dL (8-24); Bun/Creatinine Ratio 39.4 (12.0-20.0); CO2, Blood 28 mmol/L (21-32); Calcium, Blood 7.4 mg/dL (8.5-10.1); Chloride, Blood 104 mmol/L (98-108); Creatinine, Blood 0.38 mg/dL (0.40-1.00); Globulin, Blood 3.1 g/dL (2.2-4.0); Glomerular Filtration Rate >60 (60-); Glucose, Blood 96 mg/dL (70-99); Magnesium, Blood 1.6 mg/dL (1.6-2.4); Phosphorus, Blood 2.4 mg/dL (2.5-4.9); Potassium, Blood 3.8 mmol/L (3.5-5.5); Sodium, Blood 137 mmol/L (136-145); Total Protein, Blood 4.5 g/dL (6.4-8.2)
[2021-02-11 04:33] LABS: BAND PERCENT MAN 17 % (0-8); BASOPHILS PERCENT MAN 0 % (0-2); EOSINOPHILS PERCENT MAN 0 % (0-6); LYMPHOCYTES ABSOLUTE MAN 0.74 K/mm3 (0.84-5.20); LYMPHOCYTES PERCENT MAN 7 % (21-46); METAMYELOCYTE ABSOLUTE MAN 0.31 K/mm3 (0.00-0.00); METAMYELOCYTE PERCENT MAN 3 % (0-0); MONOCYTES PERCENT MAN 1 % (4-13); MYELOCYTE PERCENT MAN 1 % (0-0); NEUTROPHILS ABSOLUTE MAN 9.33 K/mm3 (1.96-9.15); SEG NEUTROPHILS PERCENT MAN 71 % (41-73); TOTAL CELLS COUNTED 100
--- NOTE | 2021-02-11 06:34 | NUR ---
SHIFT SUMMARY PT REMAINS INTUBATED AND SEDATED. VENT SETTINGS A/C PC 16/20/5/50%, FIO2 TITRATED UP AFTER BEDBATH, UNABLE TO TITRATE DOWN DURING THE NIGHT. PT CONTINUES TO APPEAR UNCOMFORTABLE BUT NOT FOLLOWING COMMANDS, MEDICATED WITH MULTIPLE DOSES OF PRN FENTANYL. TEMPERATURE REMAINS ELEVATED @ 101.7 VIA NANCE TEMP PROBE, DR ACOSTA NOTIFIED, BLOOD CULTURES ORDERED. NANCE CATH PATENT, DRAINING YELLOW URINE. NO BM THIS SHIFT. WILL CONTINUE TO MONITOR, REPORT TO BE GIVEN TO ONCOMING NURSE.
--- NOTE | 2021-02-11 08:43 | NUR ---
CARE ASSUMED 0700 Pt intubated and sedated. Vent settings: AC PC 16/20/5/50%, SPO2 > 90%. Sedated with Propofol 40 mcg/kg/min and precedex 1.2 mcg/kg/hr, titerated down from Prop 50 mcg/kg/min and precedex 1.4 mcg/kg/hr when care assumed. Pt responds to noxious stimuli, grimace during oral care. Currently tolerating vent, RR 30-34. HR 90'S. MAP > 60. VHP @ GOAL 25 ML/HR. Temp ng in place, 175 ml dark cloudy urine. Temp of 101.8. NSR. SWB in place.
--- NOTE | 2021-02-11 10:51 | NUR ---
PROVIDER VISIT NS AT 75 ML/HR PLACED ON SB BY DR. SCHULTZ. NO NEW ORDERS RECIEVED.
--- NOTE | 2021-02-11 14:35 | NUR ---
Update- Vent setting changes Patient requiring increased FIO2 due to decreased SPO2 low 80%. Pt with frequent coughing and increased peak pressures. Sedated per emar without success. Dr. Marin updated and recieved new orders for Fentanyl SHIFT LEADER. Vent settings changed to AC PC 16/30/10/100%. Propofol 55 mcg/kg/min and Precedex 1.4 mcg/kg/hr. Pt responds to noxious stimuli. Appears pale and dry. Edema non-pitting in lower extrems.
--- NOTE | 2021-02-11 17:40 | NUR ---
Provider at bedside with family Dr. Marin speaking to and updating on current care being provided. appears tearful and anxious. All questions answers by Dr. Marin and appears to have better understanding of current care.
--- NOTE | 2021-02-11 18:36 | NUR ---
Shift Summary Pt intubated and sedated. Vent settings AC PC 16/30/10/100%, SPO2 > 90%, RR continues to be elevated (26 lowest). Propofol 55 MCG/kg/min, precedex 1.4 mcg/kg/hr and Fentanyl PAPER SUPERVISOR @ 50 MCG/HR continous, infusing via central line to left IJ. Pt responds to noxious stimuli. VHP protein at goal 15 ml/hr. Temp ng in place, 750 urine output, cloudy dark/yellow. T-max 102.2. SWB in place. Per Dr. Marin no sedation vacation or SBT. Start Levo if MAP < 60. NSR. MAP > 60. Will report to oncoming shift.
--- NOTE | 2021-02-11 19:10 | NUR ---
PHARMACY CALL Only tylenol caps available, order updated on liquid tylenol. Dr. Marin would like to decrease patients temp.
--- NOTE | 2021-02-11 20:45 | NUR ---
SHIFT ASSESSMENT ASSUMED CARE OF PT @ 1900. PT INTUBATED AND SEDATED. PT RESPONDS TO NOXIOUS STIMULI BUT NOT FOLLOWING COMMANDS. VENT SETTINGS-AC PC 16/30/10/100%, TITRATED DOWN TO 90% c RT IN ROOM DURING ASSESSMENT. O2 SATS >90%. PROPOFOL GTT @ 55MCG/KG/MIN & PRECEDEX @ 1.4MCG/KG/HR. FENTANYL PLASTER AND STUCCO WORKER INFUSING @ 50MCG/HR. MAP INITIALLY >60, AFTER TURNING PT, MAP DECREASED TO <60. LEVOPHED GTT INITIATED @ 2MCG/MIN c A MAP >60. TEMP NANCE CATH PATENT, DRAINING YELLOW URINE. WILL CONTINUE TO MONITOR.
[2021-02-12 03:23] LABS: BASOPHILS ABSOLUTE AUTO 0.06 K/mm3 (0.00-0.23); BASOPHILS PERCENT AUTO 0 % (0-2); Hematocrit 31.6 % (33.0-51.0); Hemoglobin 10.1 g/dL (11.5-16.0); Mean Corpuscular HGB 28.6 pg (26.0-34.0); Mean Corpuscular Volume 90 fL (80-100); Mean Platelet Volume 10.1 fL (9.1-12.4); NRBC ABSOLUTE 0.03 K/mm3 (0.00-0.02); NRBC Auto 0.2 /100 WBC (0.0-0.2); Platelet Count 158 K/mm3 (150-400); RDW Coefficient Variation 18.8 % (11.7-14.2); RDW Standard Deviation 60.5 fL (35.1-46.3); Red Blood Cell Count 3.53 M/mm3 (3.80-5.20); White Blood Cell Count 14.38 K/mm3 (4.00-11.30)
[2021-02-12 03:24] LABS: EOSINOPHILS PERCENT AUTO 1 % (0-6); IMMATURE GRAN ABSOLUTE AUTO 0.79 K/mm3 (0.00-0.10); IMMATURE GRAN PERCENT AUTO 6 % (0-1); LYMPHOCYTES ABSOLUTE AUTO 0.62 K/mm3 (0.84-5.20); LYMPHOCYTES PERCENT AUTO 4 % (21-46); MONOCYTES PERCENT AUTO 2 % (4-13); NEUTROPHILS ABSOLUTE AUTO 12.41 K/mm3 (1.96-9.15); NEUTROPHILS PERCENT AUTO 86 % (41-73)
[2021-02-12 03:38] LABS: Anion Gap 5 mmol/L (6-16); Blood Urea Nitrogen 18 mg/dL (8-24); Bun/Creatinine Ratio 42.8 (12.0-20.0); CO2, Blood 30 mmol/L (21-32); Calcium, Blood 7.5 mg/dL (8.5-10.1); Chloride, Blood 101 mmol/L (98-108); Creatinine, Blood 0.42 mg/dL (0.40-1.00); Glomerular Filtration Rate >60 (60-); Glucose, Blood 132 mg/dL (70-99); Potassium, Blood 3.3 mmol/L (3.5-5.5); Sodium, Blood 136 mmol/L (136-145)
[2021-02-12 03:41] LABS: BAND PERCENT MAN 10 % (0-8); BASOPHILS PERCENT MAN 0 % (0-2); EOSINOPHILS ABSOLUTE MAN 0.28 K/mm3 (0.00-0.68); EOSINOPHILS PERCENT MAN 2 % (0-6); LYMPHOCYTES PERCENT MAN 7 % (21-46); MONOCYTES PERCENT MAN 0 % (4-13); NEUTROPHILS ABSOLUTE MAN 13.08 K/mm3 (1.96-9.15); SEG NEUTROPHILS PERCENT MAN 81 % (41-73); TOTAL CELLS COUNTED 100
--- NOTE | 2021-02-12 07:17 | NUR ---
SHIFT SUMMARY PT REMAINS INTUBATED AND SEDATED. VENT SETTINGS REMAIN THE SAME OTHER THAN TITRATING FIO2 DOWN TO 65% c O2 SATS REMAINING >90%. PT TOLERATES TURNS ON THE LEFT OVER THE RIGHT. PT APPEARS MUCH MORE COMFORTABLE WITH THE FENTANYL ANGLE FURNACEMAN DURING THE NIGHT. LEVOPHED WAS INITIATED AND CONTINUES TO INFUSE @ 2MCG/MIN c A MAP >60. PROPOFOL AND PRECEDEX REMAIN @ 55MCG/MIN & 1.4MCG/KG/HR. NO OTHER ACUTE CHANGES DURING THE NIGHT. REPORT GIVEN TO ONCOMING NURSE.
--- NOTE | 2021-02-12 08:12 | NUR ---
Received report from Gustavo GROVER. Patientis intubated and sedated. She has 7.5 ET and is 24 cm at teeth with vent settings AC 16, PC 30, PEEP 10, FiO2 65%. She witdrawls from painful stimuli or oral care. Am care done. She has OG in place and has Vital High Protien 15 ml/hr and 30 ml/q4 water flushes. She has RI thta dressing intact and site WNL's and is infusing Levophed 2 mcg/min, NS TKO, Propofol 55 mcg/kg/min, Precedex 1.4 mcg/kg/hr, Fentanyl PAYING TELLER at 50 mcg/hr, and NS TKO. She has bilateral soft wrist restraints for lines/tube and patient safety. She has 16Fr temp ng draining to gravity and a temp of 98.2
--- NOTE | 2021-02-12 09:43 | NUR ---
No significant setting changes with pumps or vent. Dr Marin by briefly to check on patient. She has maintained sats >90%. Repositioned.
--- NOTE | 2021-02-12 11:30 | NUR ---
Patient has been stabilized and continued no changes to vent ot gtt's. Levophed 2 mcg/min, Propofol 5 mcg/kg/min, Fentanyl 50mcg/hr, and x2 NS TKO's. TF's continue at 15ml/hr and no residuals. Repositioned and pulled up in bed.
--- NOTE | 2021-02-12 13:30 | NUR ---
When repositioning to right side her RR went in the 40's and medicated with 2mg ativan and increased FiO2 to 75% and sats became >90%. No changes to gtt's or any other vent changes. Oral care and repositioning.
--- NOTE | 2021-02-12 15:30 | NUR ---
arrived and Darius RN gave update. Vent settings AC 16, PC 30, FiO2 70% PEEP 10 and sats >90%. Patient has been resting quietly. Levophed remains at 2 mcg/min with systolics 90-120. RR 40's and have rarely dropped below. Continues luz elena respond to nocious stimuli.
--- NOTE | 2021-02-12 18:14 | NUR ---
Patient remains intubated and sedated with 7.5 ET and 24 cm at teeth and vent settings of AC 16, PC 30, FiO2 70% and PEEP 10 with sats >90%. She has RIJ infusing Levophed at 2 mcg/min, Propofol 55 mcg/kg/min, Precedex 1.4 mcg/kg/hr and x2 NS TKO, Fentanyl TRUCK RENTAL SERVICE ATTENDANT . Britton patent light sid colored urine, and no stool today. TF continues VHP at 15ml/hr with 30 ml/q4 water flushes. Withdrawls to nocious stimuli.
--- NOTE | 2021-02-12 22:12 | NUR ---
SHIFT ASSESSMENT ASSUMED CARE OF PT @ 1900, REPORT RECEIVED FROM REILLY LEE. PT INUBATED AND SEDATED. VENT SETTINGS INITIALLY AC-16/30/PEEP 10/ FIO2 70%, DURING TURN PT HAD A COUGHING SPELL AND O2 SATS DROPPED TO MID 80'S, FIO2 TITRATED TO 80% c O2 SATS >90%. PT GRIMACES TO ORAL CARE AND MOVEMENT, DOES NOT FOLLOW COMMANDS. VHP INFUSING @ GOAL, 15O RESIDUALS REINSTILLED. PROPOFOL GTT INFUSING @ 55MCG/KG/MIN, PRECEDEX @ 1.4MCG/KG/HR. FENTANYL BELT TURNER INFUSING @ 50MCG/HR. LEVOPHED GTT @ 2MCG/MIN WITH GOAL MAP >60. TEMP NANCE PATENT, DRAINING YELLOW URINE TO GRAVITY. WILL CONTINUE TO MONITOR CLOSELY.
--- NOTE | 2021-02-13 01:44 | NUR ---
UPDATE AFTER BATHING AND APPLYING NEW DRESSING TO COCCYX, PTS RR HAS REMAINED IN THE MID 30'S PT APPEARS UNCOMFORTABLE, FI02 TITRATED UP TO 85% TO MAINTAIN O2 SATS >88%. 50MCG'S PRN FENTANYL GIVEN TO HOPEFULLY ASSIST WITH PT SEDATION. PROPOFOL GTT ALSO TITRATED UP TO 60MCG/KG/MIN. WILL CONTINUE TO MONITOR PT RESPONSE.
--- NOTE | 2021-02-13 05:51 | NUR ---
SHIFT SUMMARY PT REMAINS INTUBATED AND SEDATED. VENT [id number]-34/30/PEEP 10/ FIO2 100%. AFTER TURNING PT @ 0530 TO LEFT SIDE, HER SATS DROPPED TO THE MID 80'S AND MAINTAINED. FIO2 TITRATED UP TO 100% WITH SATS REMAINING AROUND 87-88% AND RR OF 35-40. 2MG ATIVAN GIVEN WITH LITTLE RESPONSE. 100MCG PRN FENTANYL ADMINISTERED FOR SEDATION ADJUNCT, RR DECREASED TO 30-32 AND O2 SATS IMPROVED TO 90-91%. PT IS NOT TOLERATING TURNS TO LEFT OR RIGHT AT THIS TIME. PROPOFOL GTT INFUSING @ 65MCG/KG/MIN, PRECEDEX @ 1.4MCG/KG/HR, AND LEVOPHED GTT @ 2MCG/MIN. NO BM THIS SHIFT. 2200ML URINE OUTPUT THIS SHIFT. WILL CONTINUE TO MONITOR CLOSELY.
--- NOTE | 2021-02-13 08:00 | NUR ---
Recieved report from neeraj GROVER. Patient is intubated and sedated. She has 7.5 ET and is 24 cm at teeth with vent settings AC 16, PC 30, FiO2 100% and PEEP 10 and sats >90%. She has RIJ infusing Levophed at 2 mcg/min, Propofol 65 mcg/kg/min, Precedex 1.4 mcg/kf/hr, Fentanyl 50 mch/hr, x2 NS TKO. She has OG in place and is infusing VHP at 15 with 30 ml/q4 water flushes. She has 16Fr Temp ng draining to gravity yellow urine. She has wound on backside that was cleaned and re-dressed on Noc shift. She withdrawls with nocious stimuli. Placed 5Fr triple PICC in [place] and layed patient flat and pulled LIJ CL, held for 10 minutes and placed clear op site. Tolerated am meds and repositioning well.
[2021-02-13 08:55] LABS: Hematocrit 30.2 % (33.0-51.0); Hemoglobin 9.8 g/dL (11.5-16.0); Mean Corpuscular HGB 28.2 pg (26.0-34.0); Mean Corpuscular HGB Conc 32.5 g/dL (31.5-36.5); Mean Corpuscular Volume 87 fL (80-100); Mean Platelet Volume 10.6 fL (9.1-12.4); NRBC ABSOLUTE 0.03 K/mm3 (0.00-0.02); NRBC Auto 0.3 /100 WBC (0.0-0.2); Platelet Count 140 K/mm3 (150-400); RDW Coefficient Variation 17.9 % (11.7-14.2); RDW Standard Deviation 56.7 fL (35.1-46.3); Red Blood Cell Count 3.47 M/mm3 (3.80-5.20); White Blood Cell Count 10.64 K/mm3 (4.00-11.30)
--- NOTE | 2021-02-13 09:00 | NUR ---
Received report from Gustavo GROVER. Patient is intubated and sedated with7.5 ET and 22 cm at teeth, vent setting of 14/400/30/5 and sats >90%. She has cooling cath CL in right groin infusing Heparin at 26 units/kg/hr, Propofol at 20 mcg/kg/min, x2 NS TKO. Pupils looking up and pin point at 2 and un responsive, she has no purposeful movement and intermitent seizure activity. VSS, See EMR. She has 16 Fr temp ng draining sid colored urine to gravity. She has OG in place infusing Pivot 1.5 at 45ml/hr and 30 ml/q4 water flushes.
[2021-02-13 09:11] LABS: Anion Gap 5 mmol/L (6-16); Blood Urea Nitrogen 15 mg/dL (8-24); Bun/Creatinine Ratio 40.1 (12.0-20.0); CO2, Blood 35 mmol/L (21-32); Calcium, Blood 7.6 mg/dL (8.5-10.1); Chloride, Blood 95 mmol/L (98-108); Creatinine, Blood 0.37 mg/dL (0.40-1.00); Glomerular Filtration Rate >60 (60-); Glucose, Blood 108 mg/dL (70-99); Magnesium, Blood 1.5 mg/dL (1.6-2.4); Sodium, Blood 135 mmol/L (136-145)
[2021-02-13 09:14] LABS: BAND PERCENT MAN 17 % (0-8); BASOPHILS PERCENT MAN 0 % (0-2); EOSINOPHILS ABSOLUTE MAN 0.21 K/mm3 (0.00-0.68); EOSINOPHILS PERCENT MAN 2 % (0-6); LYMPHOCYTES ABSOLUTE MAN 0.53 K/mm3 (0.84-5.20); LYMPHOCYTES PERCENT MAN 5 % (21-46); MONOCYTES ABSOLUTE MAN 0.42 K/mm3 (0.16-1.47); MONOCYTES PERCENT MAN 4 % (4-13); MYELOCYTE ABSOLUTE MAN 0.21 K/mm3 (0.00-0.00); MYELOCYTE PERCENT MAN 2 % (0-0); NEUTROPHILS ABSOLUTE MAN 9.25 K/mm3 (1.96-9.15); SEG NEUTROPHILS PERCENT MAN 70 % (41-73); TOTAL CELLS COUNTED 100
--- NOTE | 2021-02-13 10:22 | NUR ---
Reduced FiO2 to 75% and increased Levophed to 3 mcg/min. No other changes to vent and gtt's. Her RR mid to high 40's
--- NOTE | 2021-02-13 11:00 | NUR ---
Patient has increased seizure activity and Dr Marin requested 4 mg Ativan that helpped decrease increased Propofol to 50 mcg/kg/min and still has intermitent twitching. Pupils remains a 2 and unresponsive to any stimuli. Rt decreased FiO2 to 25%, no other vent changes. Dr Marin has been in room doing intermitent assessments.
--- NOTE | 2021-02-13 11:30 | NUR ---
No significant changes with patient, medicated for increased RR to 49 and Ativan barely reduced rate. She has been able to be positioned and has minimal periods of Dsat. Secretions minimal from ET. Increased Levophed to 4 mcg/min. Levophed at 65 mcg/kg/mn and Precedex 1.4 mcg/kg/hr.
--- NOTE | 2021-02-13 13:00 | NUR ---
Patient continues to have intermitent twitching/seizure activity and Dr Marin looking at starting different seizure medication. VS remains stable and no other changes to current gtt's or vent. No changes to neuro status
--- NOTE | 2021-02-13 13:36 | NUR ---
Started Nimbex 1.5 mcg/kg/min to possible help with RR of 49 and shortly after have decreased Propofol to 50 mcg/kg/min and have had little success on decrease of RR. No changes to Vent setting or other gtt's.
--- NOTE | 2021-02-13 15:38 | NUR ---
Dr Marin increased Keppra to 1GM q12. Family friends in room visiting patient. No neuro changes and no vent or gtt chnages other than new medication. Dr Marin had cooling cath placed on standby for two hours and temp increased.
--- NOTE | 2021-02-13 18:00 | NUR ---
Patient rate as high as [address] Marin and asked for 20 mg of labatelol. Administered and rate dropped to 109. Increased FiO2 to 100% for sats 87%. Propofol 45 mcg/kg/min, Levophed 4 mcg/min, Precedex 1.4 mcg/kg/hr, and x2 NS. Urine output 1890 mls. Still No stool as of yet. Nimbex at 2.0 mcg/kg/min.
[2021-02-13 22:34] LABS: Base Excess Venous 5.6 mmol/L; Bicarbonate Venous 27.2 mmol/L (24.0-30.0); PCO2 Venous 90.1 mmHg (38-42); PO2 Venous 47.1 mmHg (38-42); pH Blood Venous 7.18 (7.34-7.37)
[2021-02-14 04:46] LABS: Hematocrit 33.5 % (33.0-51.0); Hemoglobin 10.3 g/dL (11.5-16.0); Mean Corpuscular HGB 28.2 pg (26.0-34.0); Mean Corpuscular HGB Conc 30.7 g/dL (31.5-36.5); Mean Platelet Volume 10.6 fL (9.1-12.4); NRBC ABSOLUTE 0.03 K/mm3 (0.00-0.02); NRBC Auto 0.2 /100 WBC (0.0-0.2); Platelet Count 173 K/mm3 (150-400); RDW Coefficient Variation 17.7 % (11.7-14.2); RDW Standard Deviation 59.1 fL (35.1-46.3); Red Blood Cell Count 3.65 M/mm3 (3.80-5.20); White Blood Cell Count 16.11 K/mm3 (4.00-11.30)
[2021-02-14 04:52] LABS: Mean Corpuscular Volume 92 fL (80-100)
[2021-02-14 05:17] LABS: Magnesium, Blood 2.4 mg/dL (1.6-2.4)
[2021-02-14 05:23] LABS: BAND PERCENT MAN 12 % (0-8); BASOPHILS PERCENT MAN 0 % (0-2); EOSINOPHILS ABSOLUTE MAN 0.16 K/mm3 (0.00-0.68); EOSINOPHILS PERCENT MAN 1 % (0-6); LYMPHOCYTES ABSOLUTE MAN 0.96 K/mm3 (0.84-5.20); LYMPHOCYTES PERCENT MAN 6 % (21-46); MONOCYTES ABSOLUTE MAN 1.12 K/mm3 (0.16-1.47); MONOCYTES PERCENT MAN 7 % (4-13); MYELOCYTE ABSOLUTE MAN 0.16 K/mm3 (0.00-0.00); MYELOCYTE PERCENT MAN 1 % (0-0); NEUTROPHILS ABSOLUTE MAN 13.69 K/mm3 (1.96-9.15); SEG NEUTROPHILS PERCENT MAN 73 % (41-73); TOTAL CELLS COUNTED 100
[2021-02-14 05:47] LABS: Alanine Aminotransfer (ALT/SGP 46 U/L (12-78); Albumin, Blood 1.2 g/dL (3.4-5.0); Albumin/Globulin Ratio 0.3 (0.8-1.8); Alk Phos 243 U/L (50-136); Anion Gap 5 mmol/L (6-16); Aspartate Aminotrans (AST/SGOT 92 U/L (12-37); Bilirubin, Total 1.4 mg/dL (0.1-1.0); Blood Urea Nitrogen 22 mg/dL (8-24); Bun/Creatinine Ratio 32.6 (12.0-20.0); CO2, Blood 32 mmol/L (21-32); Calcium, Blood 7.6 mg/dL (8.5-10.1); Chloride, Blood 93 mmol/L (98-108); Creatinine, Blood 0.67 mg/dL (0.40-1.00); Globulin, Blood 3.8 g/dL (2.2-4.0); Glomerular Filtration Rate >60 (60-); Glucose, Blood 148 mg/dL (70-99); Sodium, Blood 130 mmol/L (136-145)
[2021-02-14 05:48] LABS: Potassium, Blood 5.3 mmol/L (3.5-5.5)
--- NOTE | 2021-02-14 06:02 | NUR ---
SHIFT SUMMARY START OF SHIFT PT FEBRILE, TACHYCARDIC. PLACED ICE PACKS, TURNED ROOM TEMPERATURE DOWN LOW POSSIBLE, PLACED COOLING BLANKET, NONE OF THESE MEASURES WERE WORKING. CALLED DR SCHULTZ, OBTAINED BLOOD CULTURES, X1 DOSE OF TORADOL. DR SCHULTZ CALLED BACK LATER, GAVE ORDER FOR 250 MG DANTROLENE. PER PHARAMCY, GAVE 240 MG DUE TO SHORTAGE, UNCERTAIN IF HAD ENOUGH FOR 2ND DOSE IF NEEDED. AFTER STOPPING NIMBEX AND GIVING DANTROLELE, TEMPERATURE DOWN TO CURRENT 100.1, TMAX BEFORE DANTROLENE WAS 104. HEART RATE ALSO IMPROVED WITH LOWERING TEMPERATURE. UNFORTUNATELY HAVE BEEN UNABLE TO COMPLETE BATH, EFFECTIVELY TURN PATIENT. ATTEMPTED TO TURN TO RIGHT ONCE, ALMOST IMMEDIATE DESATURATION TO 86% SPO2, BACK UP TO 91% WHEN TURNED TO BACK. WHEN TURNING, HAVE SIMPLY SHOVED PILLOWS UNDER RIGHT HIP TO TURN SLIGHTLY TO LEFT, ALMOST EVERY TIME THIS NURSE HAS DONE THIS HAVE HAD TO INCREASE LEVOPHED DRIP, NOW UP TO 25 MCG/MIN. ALSO INCREASED FENTANYL DRIP EARLIER TO 100 MCG/HR PER DR SCHULTZ WHEN OBTAINED BLOOD CULTURES. ASSESSMENT IS CHARTED. WILL CONTINUE TO MONITOR.
--- NOTE | 2021-02-14 09:53 | NUR ---
ASSUMPTION OF CARE ASSUMED CARE OF PT. PT REMAINS INTUBATED WITH VENT SETTINGS AC/PC /. PT IS RECEIVING PROPOFOL 50MCG/KG/MIN, LEVOPHED 25MCG/MIN, PRECEDEX 1.4MCG/KG/HR, AND FENTANYL 100MCG/HR. PT O2 SATS RANGE FROM 84-92%. OG IN PLACE, TUBE FEEDINGS REMAIN ON STANDBY. PT IS UNABLE TO FOLLOW VERBAL COMMANDS, DOES NOT OPEN EYES OR WITHDRAW FROM STERNAL RUB. PT IS SEDATED AND NOT BREATHING OVER THE VENT. PT SKIN ON BACK AND UPPER THIGHS IS PALE, DAMP, AND SHEARING. REPLACED ALGINATE AND MEPILEX DRESSINGS ON COCCYX. SKIN CLEANED AND DRIED. NEW LINEN AND GOWN PLACED. SMALL BOWEL MOVEMENT. PEEP HAS BEEN INCREASED TO 14. SEE SHIFT ASSESSMENT.
--- NOTE | 2021-02-14 13:15 | NUR ---
APPLYING COOLING BLANKET AT THIS TIME. TMAX 101.5
[2021-02-14 13:34] LABS: International Normalized Ratio 0.95; Prothrombin Time Results 10.3 Sec (9.7-11.5)
--- NOTE | 2021-02-14 14:49 | NUR ---
Echocardiogram completed.
--- NOTE | 2021-02-14 17:39 | NUR ---
SHIFT SUMMARY PT REMAINS INTUBATED AND SEDATED. PT HAS REQUIRED INCREASING PEEP FROM PEEP OF 10 AT START OF SHIFT TO CURRENT PEEP OF 16. VENT SETTINGS AC/PC 16/30/16/100%. PT ON FENTANYL GTT 100 MCG/HR, PROPOFOL @ 50 MCG/KG/MIN, PRECEDEX 1.4 MCG/KG/HR. NO NEUROLOGICAL CHANGES. PT HAVING TACHYCARDIA WITH HR IN THE MID 140'S, STAT EKG ORDER THAT SHOWS NEW BBB. BIOLOGIST AIDE CONCERNED WITH POSSIBILITY OF NEW PE. STAT ECHO ORDERED AND HEPARIN GTT STARTED. PT NOT STABLE ENOUGH TO TRANSFER TO OBTAIN ABDOMINAL CT. TPA STARTED AT 50/ML'S HR FOR EMPIRICAL CONVERAGE. HEPARIN PLACED ON HOLD AT THIS TIME, WILL RESUME FOLLOWING TPA INFUSION. LEVOPHED @ 30 MCG/MIN, VASOPRESSIN @ 0.04 UNITS/MIN. PT'S SPOUSE AT BEDSIDE DISCUSSING PT'S DECLINE. SPOUSE DECIDED TO MAKE PT DNR, ORDERS PLACED. WILL REPORT TO ONCOMING NURSE.
--- NOTE | 2021-02-14 21:36 | NUR ---
ASSUMPTION OF CARE PT INTUBATED AND SEDATED, VENT TO ACPC 16/30 PEEP 16 FIO2 100%, PT SEDATED WITH PRECEDEX @ 1.4, PROPOFOL @ 50 AND FENTANYL @ 100mcg (SEE FLOWSHEET FOR TITRATIONS), PT UNRESPONSIVE TO VERBAL AND PAINFUL STIMULI. FOELY TEMP PROBE SHOWS 103.6-103.7, COOLING BLANKET IN PLACE. MONITOR SHOWS SINUS RHYTHM WITH BBB, HR 130'S-140'S, SBP 70'S-80'S WITH MAPS 50'S-60'S, LEVO GTT @ 30 AND VASOPRESSIN INFUSING. CALL PLACED TO DR SCHULTZ, DISCUSSED PTS VITAL SIGNS AND GTT RATES, DR SCHULTZ STS NO NEW INTERVENTIONS FOR HYPOTENSION. PLAN TO DECREASE SEDATION TOLERATED. SKIN IS COOL, MOTTLING NOTED TO LLE. OG IN PLACE WITH TF @ 10ml/hr, NANCE IN PLACE WITH CLOUDY DARK YELLOW OUTPUT.
[2021-02-15 06:08] LABS: Hematocrit 32.8 % (33.0-51.0); Hemoglobin 10.3 g/dL (11.5-16.0); Mean Corpuscular HGB 29.2 pg (26.0-34.0); Mean Corpuscular HGB Conc 31.4 g/dL (31.5-36.5); Mean Corpuscular Volume 93 fL (80-100); Mean Platelet Volume 10.8 fL (9.1-12.4); NRBC ABSOLUTE 0.08 K/mm3 (0.00-0.02); NRBC Auto 0.4 /100 WBC (0.0-0.2); Platelet Count 157 K/mm3 (150-400); RDW Coefficient Variation 17.5 % (11.7-14.2); RDW Standard Deviation 59.7 fL (35.1-46.3); Red Blood Cell Count 3.53 M/mm3 (3.80-5.20); White Blood Cell Count 18.69 K/mm3 (4.00-11.30)
--- NOTE | 2021-02-15 06:48 | NUR ---
SHIFT SUMMARY PT REMAINS INTUBATED AND SEDATED, SEDATION MEDICATIONS DECREASED THIS SHIFT, PT TOLERATED WELL. VENT SET TO AC PC 16/ PEEP 16 FIO2 95%. MONITOR SHOWS SINUS WITH A BBB, HR 130'S, NO CHANGES IN LEVO AND VASOPRESSIN GTTS, BP'S INITIALLY IMPROVED SEDATION TITRATED DOWN, @ APPROX 0230, AUTOMATIC BP'S BECAME INCREASINGLY MORE DIFFICULT TO OBTAIN, PULSES REMAIN PALPABLE BUT NOTABLY WEAKER, MEAN READINGS WITH NIBP REMAINED> 60. FOLLOW UP ASSESSMENTS, PTS ONLY POSITIVE PER DOPPLER AND BP 60/D. PTS SPOUSE SLEEPING AT BEDSIDE, UPDATED ON PTS STATUS. CALL PLACED TO DR SCHULTZ, NO NEW ORDERS AT THIS TIME. PTS SPOUSE UNDERSTANDS PROGNOSIS, MAKING PHONE CALLS TO FAMILY, AND PREPARING PATIENT FOR LAST RIGHTS.
[2021-02-15 06:50] LABS: Bun/Creatinine Ratio 26.3 (12.0-20.0); Calcium, Blood 6.8 mg/dL (8.5-10.1); Creatinine, Blood 1.33 mg/dL (0.40-1.00); Potassium, Blood 5.8 mmol/L (3.5-5.5)
[2021-02-15 07:18] LABS: BAND PERCENT MAN 15 % (0-8); BASOPHILS PERCENT MAN 0 % (0-2); EOSINOPHILS PERCENT MAN 0 % (0-6); LYMPHOCYTES ABSOLUTE MAN 1.86 K/mm3 (0.84-5.20); LYMPHOCYTES PERCENT MAN 10 % (21-46); MONOCYTES ABSOLUTE MAN 0.37 K/mm3 (0.16-1.47); MONOCYTES PERCENT MAN 2 % (4-13); MYELOCYTE ABSOLUTE MAN 0.18 K/mm3 (0.00-0.00); MYELOCYTE PERCENT MAN 1 % (0-0); NEUTROPHILS ABSOLUTE MAN 16.26 K/mm3 (1.96-9.15); SEG NEUTROPHILS PERCENT MAN 72 % (41-73); TOTAL CELLS COUNTED 100
--- NOTE | 2021-02-15 07:23 | NUR ---
PT REMAINS INTUBATED AND ON FULL PRESSOR SUPPORT. PT SURROUNDED BY FAMILY MEMBERS. PASTORAL CARE TO ARRIVE IN 15 MIN TO GIVE PT LAST RIGHTS. ONCE THAT HAS BEEN DONE, WILL DISCUSS WITH PT SPOUSE SADIE ABOUT WITHDRAWL OF LIFE SUPPORT AND CHANGING PT TO COMFORT CARE.
--- NOTE | 2021-02-15 08:00 | NUR ---
LAST RIGHTS GIVEN BY FATHER ENA. DR. HANCOCK UPDATED AND PT MADE COMFORT CARE.
--- NOTE | 2021-02-15 08:05 | NUR ---
PT MED WITH MORPHINE SULFATE 4 MG IVP AND ATIVAN 2 MG IVP X1, THEN EXTUBATED AND ALL IV DRIPS DISCONTINUED. PT FAMILY AT BEDSIDE.
--- NOTE | 2021-02-15 08:13 | NUR ---
PT SURROUNDED BY FAMILY MEMBERS.
== END 2021-02-15 08:13 | DRG 870 ==
LOC: ER 14:59 → ICUW 16:34 → ICUE 16:34
PROVIDERS: Emergency Medicine; Internal Medicine; Internal Medicine Critical Care Medicine; Internal Medicine Pulmonary Disease; Pharmacist; ADMIT Internal Medicine
PROC: 5A1955Z Respiratory Ventilation, Greater than 96 Consecutive Hours (ICD-10-PCS; principal; 2021-02-05)
PROC: 0BH17EZ Insertion of Endotracheal Airway into Trachea, Via Natural or Artificial Opening (ICD-10-PCS; 2021-02-05)
PROC: 3E0333Z Introduction of Anti-inflammatory into Peripheral Vein, Percutaneous Approach (ICD-10-PCS; 2021-02-05)
PROC: 8E0ZXY6 Isolation (ICD-10-PCS; 2021-02-05)
PROC: 3E043XZ Introduction of Vasopressor into Central Vein, Percutaneous Approach (ICD-10-PCS; 2021-02-10)
DX: A41.89 Other specified sepsis (principal); J96.21 Acute and chronic respiratory failure with hypoxia; U07.1 COVID-19; J12.82 Pneumonia due to coronavirus disease 2019; Z51.5 Encounter for palliative care; Z66 Do not resuscitate; J15.1 Pneumonia due to Pseudomonas; J15.0 Pneumonia due to Klebsiella pneumoniae; B44.0 Invasive pulmonary aspergillosis; R65.21 Severe sepsis with septic shock; N39.0 Urinary tract infection, site not specified; D84.821 Immunodeficiency due to drugs; E87.6 Hypokalemia; E83.39 Other disorders of phosphorus metabolism; B96.4 Proteus (mirabilis) (morganii) as the cause of diseases classified elsewhere; R79.89 Other specified abnormal findings of blood chemistry; I10 Essential (primary) hypertension; R73.9 Hyperglycemia, unspecified; E89.0 Postprocedural hypothyroidism; M06.00 Rheumatoid arthritis without rheumatoid factor, unspecified site; J45.909 Unspecified asthma, uncomplicated; F41.9 Anxiety disorder, unspecified; F32.9 Major depressive disorder, single episode, unspecified; Z68.36 Body mass index [BMI] 36.0-36.9, adult; E66.9 Obesity, unspecified; K21.9 Gastro-esophageal reflux disease without esophagitis; Z88.8 Allergy status to other drugs, medicaments and biological substances; Z79.899 Other long term (current) drug therapy; Z79.52 Long term (current) use of systemic steroids; Z85.850 Personal history of malignant neoplasm of thyroid; Z90.49 Acquired absence of other specified parts of digestive tract; Z90.710 Acquired absence of both cervix and uterus; Z98.890 Other specified postprocedural states
CPT/HCPCS: 31500; 36415; 36556; 36569; 36600; 51702; 71045; 71260; 80048; 80053; 80202; 81001; 82803; 82947; 83605; 83735; 83880; 84100; 84145; 84484; 85025; 85610; 85651; 85730; 86140; 87040; 87070; 87077; 87086; 87102; 87186; 87205; 87252; 87254; 93005; 93010; 93308; 93321; 93970; 93971; 94002; 94003; 94640; 94644; 94660; 96374-59; 96375-59; 99285-25; A9270; C1751; J0330; J1100; J1644; J1650; J1815; J1885; J1940; J2060; J2185; J2270; J2543; J2704; J2930; J2997; J3010; J3370; J3465; J3475; J3480; J7030; J7050; J7060; J7512; Q9967